=== PATIENT | male | born 1970 | race Hispanic/Latino ===

== ENCOUNTER 2017-12-27 12:59 | Inpatient (IN) | payer OTHER ==
[2017-12-27 13:54] LABS: Basophils # (Auto) 0.1 K/mm3 (0.0-0.1); Basophils % (Auto) 0.9 % (0.0-1.8); Eosinophils # (Auto) 0.5 K/mm3 (0.0-0.4); Eosinophils % (Auto) 6.4 % (0.0-4.3); Hematocrit 35.7 % (35.5-45.6); Lymphocytes # (Auto) 1.8 K/mm3 (1.2-5.4); Lymphocytes % (Auto) 23.4 % (13.4-35.0); Mean Corpuscular HGB Conc 34 % (32-34); Mean Corpuscular Hemoglobin 29 pg (28-32); Mean Corpuscular Volume 86 fl (84-94); Monocytes # (Auto) 0.6 K/mm3 (0.0-0.8); Monocytes % (Auto) 7.7 % (0.0-7.3); Platelet Count 306 K/mm3 (140-440); Red Blood Count 4.17 M/mm3 (3.65-5.03)
--- NOTE | 2017-12-27 14:01 | Cat Scan Report ---
CT HEAD WITHOUT CONTRAST INDICATION: Altered mental status, confused conversation. COMPARISON: None similar at this institution. FINDINGS: Noncontrast head CT demonstrates symmetric ventricles and sulci without acute or recent infarct, hemorrhage, mass effect or midline shift. No abnormal extra-axial fluid collections. Minimal benign basal ganglia calcifications. Posterior fossa structures and basilar cisterns within normal limits. Symmetric eye globes. Approximately 1.3 cm left maxillary sinus mucus retention cyst or thickening partially imaged. Clear remainder imaged paranasal sinuses and mastoid air cells. Mild nasal septal deviation/possible spur. Intact calvarium. Normal overlying scalp soft tissues. Largely edentulous jaw with few anterior mandibular teeth remaining. CONCLUSION: No acute intracranial CT abnormality with few other findings, as described. Thank you for the opportunity to participate in this patient's care.
[2017-12-27 14:08] LABS: Alanine Aminotransferase 31 units/L (7-56); Albumin 3.6 g/dL (3.9-5); BUN/Creatinine Ratio 25; Blood Urea Nitrogen 20 mg/dL (9-20); Calcium 8.9 mg/dL (8.4-10.2); Hemolysis Index 4
--- NOTE | 2017-12-27 14:30 | XRay Report ---
CHEST ONE VIEW INDICATION: Pain. Altered mental status. COMPARISON: None similar. FINDINGS: Portable, single, frontal chest radiograph demonstrates normal cardiomediastinal silhouette. Clear lungs. Unremarkable bones. CONCLUSION: No acute disease in the chest. Thank you for the opportunity to participate in this patient's care.
[2017-12-27 15:09] LABS: INR 0.96 (0.87-1.13)
[2017-12-27 15:19] LABS: Partial Thromboplastin Time 33.2 Sec. (24.2-36.6)
--- NOTE | 2017-12-27 15:41 | Emergency Department Report ---
ED Neuro Deficit HPI - General Chief Complaint: Altered Mental Status Stated Complaint: AMS Time Seen by Provider: 12/27/17 13:52 Source: patient, EMS Mode of arrival: Stretcher Limitations: No Limitations - History of Present Illness Initial Comments: Staff from [facility] where patient is currently being evaluated reports patient had altered mental status today. Reports patient more aggressive than normal. Reports patient has a contusion over right parietal scalp. Patient denies trauma. Facility physician wanted patient evaluated for contusion and AMS in the ER. Patient reports that he started feeling symptoms approximately 2 days ago. -: Gradual, days(s) Location: altered, other (Contusion right parietal scalp) Presenting Symptoms: Present: Altered Mental Status History of same: No Place: other ( facility ) Severity: mild Quality: intermittant Improves With: none Worsens With: none On Anticoagulants: No Associated Symptoms: denies: confusion, chest pain, cough, diaphoresis, fever/ chills, headaches, loss of appetite, malise, nausea/vomiting, vertigo, seizures , shortness of breath, syncope, weakness - Related Data Home Medications: Home Medications Medication Instructions Recorded Confirmed Last Taken PARoxetine [Paxil] 20 mg PO DAILY 12/27/17 12/27/17 Unknown Quetiapine Fumarate [Seroquel] 300 mg PO QHS 12/27/17 12/27/17 Unknown hydrOXYzine PAMOATE [Vistaril] 25 mg PO Q8HR PRN 12/27/17 12/27/17 Unknown Allergies/Adverse Reactions: Allergies Allergy/AdvReac Type Severity Reaction Status Date / Time No Known Allergies Allergy Verified 12/27/17 13:18 ED Review of Systems ROS: Stated complaint: AMS Other details as noted in HPI Other: GENERAL: No weight change, fatigue, weakness, fever, chills, or night sweats SKIN: Contusion right scalp HEAD: No trauma, headache, or visual changes EYES: No blurriness, tearing, itching, acute visual loss, conjunctival discoloration, or scleral icterus EARS: No hearing loss, tinnitus, vertigo, or earache NOSE: No rhinorrhea, stuffiness, sneezing, itching, or epistaxis MOUTH: No bleeding gums, hoarseness, sore throat, or swelling CARDIAC: No new murmur, chest pain, palpitations, dyspnea on exertion, orthopnea , PND, or edema RESPIRATORY: No shortness of breath, wheeze, cough, sputum production, hemoptysis, pneumonia, asthma, bronchitis, or emphysema GI: No change in appetite, nausea, vomiting, dysphagia, change in bowel frequency, diarrhea, constipation, bleeding, hematemesis, melena, hematochezia, or abdominal pain URINARY: No frequency, urgency, polyuria, dysuria, hematuria, or incontinence MUSCULOSKELETAL: No muscle weakness, joint stiffness, decrease in range of motion, redness, swelling NEUROLOGIC: Altered mental status. No loss of sensation, numbness, tingling, tremors, weakness, paralysis, seizures HEMATOLOGIC: No anemia, easy bruising, bleeding, petechiae, or purpura ENDOCRINE: No hot or cold intolerance, sweating, polyuria, polydipsia or, polyphagia no thyroid problems PSYCHIATRIC: No change in mood, no anxiety, no depression ED Past Medical Hx - Past Medical History Hx Psychiatric Treatment: Yes (depression, anxiety, ETOH abuse, cocaine) - Surgical History Past Surgical History?: No - Social History Smoking Status: Current Every Day Smoker Substance Use Type: Alcohol, Cocaine - Medications Home Medications: Home Medications Medication Instructions Recorded Confirmed Last Taken Type PARoxetine [Paxil] 20 mg PO DAILY 12/27/17 12/27/17 Unknown History Quetiapine Fumarate [Seroquel] 300 mg PO QHS 12/27/17 12/27/17 Unknown History hydrOXYzine PAMOATE [Vistaril] 25 mg PO Q8HR PRN 12/27/17 12/27/17 Unknown History ED Neuro Physical Exam - General Limitations: No Limitations Suspected Stroke: Yes - Neurological Exam Neurological exam: Present: alert - NIHSS Assessment Interval: Baseline 1a. Level of Consciousness: alert 1b. LOC Questions: answers correctly 1c. LOC Commands: performs tasks correctly 2. Best Gaze: normal 3. Visual: no visual loss 4. Facial Palsy: normal symmetrical movement 5b. Motor Arm Right: no drift 5a. Motor Arm Left: no drift 6a. Motor Leg Left: no drift 6b. Motor Leg Right: no drift 7. Limb Ataxia: absent 8. Sensory: mild/moderate sensory loss (right side) 9. Best Language: no aphasia 10. Dysarthria: normal 11. Extinction/Inattention: no abnormality Total Score: 1 Stroke Severity: Minor Stroke - Other Other exam information: GENERAL: Patient in no acute distress HEAD: Normocephalic, atraumatic EYES: PERRLA, EOM intact, no scleral icterus, visual wolfe and acuity wnl NOSE: No tenderness, discharge, sinus tenderness MOUTH: No erythema, bleeding, exudate HEART: Regular rate and rhythm, no murmur, S1-S2 are auscultated, pulses are symmetric LUNGS: bilateral breath sounds. No wheezing, rales, rhonchi ABDOMEN: Normal bowel sounds, no tenderness, no rebound, no guarding, no masses , no CVA tenderness MUSCULOSKELETAL: Normal joint range of motion, no redness, no swelling, no tenderness NEUROLOGIC: GCS 15, Alert and Oriented x3, Cranial nerves intact, normal strength, no cerebellar deficit PSYCHIATRIC: No homicidal or suicidal ideation, no anxiety, no depression, no hallucinations SKIN: Mild erythema swelling contusion right parietal occipital scalp approximately 2-3 cm in diameter. ED Course Vital Signs 12/27/17 12/27/17 12/27/17 13:18 15:16 15:28 Temperature 98.2 F Pulse Rate 73 68 66 Respiratory 14 10 L 10 L Rate Blood Pressure 132/83 Blood Pressure 134/85 [Left] O2 Sat by Pulse 100 100 Oximetry 12/27/17 15:29 Temperature Pulse Rate Respiratory 10 L Rate Blood Pressure Blood Pressure [Left] O2 Sat by Pulse 100 Oximetry - Lab Data Result diagrams: 12/27/17 13:36 12/27/17 13:36 Lab Results 12/27/17 12/27/17 12/27/17 Range/Units 13:36 13:36 13:36 WBC 7.9 (4.5-11.0) K/mm3 RBC 4.17 (3.65-5.03) M/mm3 Hgb 12.0 (11.8-15.2) gm/dl Hct 35.7 (35.5-45.6) % MCV 86 (84-94) fl MCH 29 (28-32) pg MCHC 34 (32-34) % RDW 14.0 (13.2-15.2) % Plt Count 306 (140-440) K/mm3 Lymph % (Auto) 23.4 (13.4-35.0) % [place] % (Auto) 7.7 H (0.0-7.3) % Eos % (Auto) 6.4 H (0.0-4.3) % Baso % (Auto) 0.9 (0.0-1.8) % Lymph # 1.8 (1.2-5.4) K/mm3 [place] # 0.6 (0.0-0.8) K/mm3 Eos # 0.5 H (0.0-0.4) K/mm3 Baso # 0.1 (0.0-0.1) K/mm3 Seg Neutrophils % 61.6 (40.0-70.0) % Seg Neutrophils # 4.8 (1.8-7.7) K/mm3 PT (12.2-14.9) Sec. INR (0.87-1.13) APTT (24.2-36.6) Sec. Sodium (137-145) mmol/L Potassium (3.6-5.0) mmol/L Chloride (98-107) mmol/L Carbon Dioxide (22-30) mmol/L Anion Gap mmol/L BUN (9-20) mg/dL Creatinine (0.8-1.5) mg/dL Estimated GFR ml/min BUN/Creatinine Ratio % Glucose (75-100) mg/dL Calcium (8.4-10.2) mg/dL Total Bilirubin (0.1-1.2) mg/dL AST (5-40) units/L ALT (7-56) units/L Alkaline Phosphatase (35-129) units/L Troponin T (0.00-0.029) ng/mL Total Protein (6.3-8.2) g/dL Albumin (3.9-5) g/dL Albumin/Globulin Ratio % TSH (0.270-4.200) mlU/mL Urine Color (Yellow) Urine Turbidity (Clear) Urine pH (5.0-7.0) Ur Specific [place] (1.003-1.030) Urine Protein (Negative) mg/dL Urine Glucose (UA) (Negative) mg/dL Urine Ketones (Negative) mg/dL Urine Blood (Negative) Urine Nitrite (Negative) Urine Bilirubin (Negative) Urine Urobilinogen (<2.0) mg/dL Ur Leukocyte Esterase (Negative) Urine WBC (Auto) (0.0-6.0) /HPF Urine RBC (Auto) (0.0-6.0) /HPF Salicylates < 0.3 L (2.8-20.0) mg/dL Urine Opiates Screen Urine Methadone Screen Acetaminophen < 5.0 L (10.0-30.0) ug/mL Ur Barbiturates Screen Ur Phencyclidine Scrn Ur Amphetamines Screen U Benzodiazepines Scrn Urine Cocaine Screen U Marijuana (THC) Screen Drugs of Abuse Note Plasma/Serum Alcohol (0-0.07) % 12/27/17 12/27/17 12/27/17 Range/Units 13:36 13:36 13:36 WBC (4.5-11.0) K/mm3 RBC (3.65-5.03) M/mm3 Hgb (11.8-15.2) gm/dl Hct (35.5-45.6) % MCV (84-94) fl MCH (28-32) pg MCHC (32-34) % RDW (13.2-15.2) % Plt Count (140-440) K/mm3 Lymph % (Auto) (13.4-35.0) % [place] % (Auto) (0.0-7.3) % Eos % (Auto) (0.0-4.3) % Baso % (Auto) (0.0-1.8) % Lymph # (1.2-5.4) K/mm3 [place] # (0.0-0.8) K/mm3 Eos # (0.0-0.4) K/mm3 Baso # (0.0-0.1) K/mm3 Seg Neutrophils % (40.0-70.0) % Seg Neutrophils # (1.8-7.7) K/mm3 PT (12.2-14.9) Sec. INR (0.87-1.13) APTT (24.2-36.6) Sec. Sodium 139 (137-145) mmol/L Potassium 4.9 (3.6-5.0) mmol/L Chloride 98.7 (98-107) mmol/L Carbon Dioxide 30 (22-30) mmol/L Anion Gap 15 mmol/L BUN 20 (9-20) mg/dL Creatinine 0.8 (0.8-1.5) mg/dL Estimated GFR > 60 ml/min BUN/Creatinine Ratio 25 % Glucose 83 (75-100) mg/dL Calcium 8.9 (8.4-10.2) mg/dL Total Bilirubin 0.40 (0.1-1.2) mg/dL AST 44 H (5-40) units/L ALT 31 (7-56) units/L Alkaline Phosphatase 105 (35-129) units/L Troponin T (0.00-0.029) ng/mL Total Protein 6.2 L (6.3-8.2) g/dL Albumin 3.6 L (3.9-5) g/dL Albumin/Globulin Ratio 1.4 % TSH 0.961 (0.270-4.200) mlU/mL Urine Color (Yellow) Urine Turbidity (Clear) Urine pH (5.0-7.0) Ur Specific [place] (1.003-1.030) Urine Protein (Negative) mg/dL Urine Glucose (UA) (Negative) mg/dL Urine Ketones (Negative) mg/dL Urine Blood (Negative) Urine Nitrite (Negative) Urine Bilirubin (Negative) Urine Urobilinogen (<2.0) mg/dL Ur Leukocyte Esterase (Negative) Urine WBC (Auto) (0.0-6.0) /HPF Urine RBC (Auto) (0.0-6.0) /HPF Salicylates (2.8-20.0) mg/dL Urine Opiates Screen Urine Methadone Screen Acetaminophen (10.0-30.0) ug/mL Ur Barbiturates Screen Ur Phencyclidine Scrn Ur Amphetamines Screen U Benzodiazepines Scrn Urine Cocaine Screen U Marijuana (THC) Screen Drugs of Abuse Note Plasma/Serum Alcohol < 0.01 (0-0.07) % 12/27/17 12/27/17 12/27/17 Range/Units 14:40 14:40 15:18 WBC (4.5-11.0) K/mm3 RBC (3.65-5.03) M/mm3 Hgb (11.8-15.2) gm/dl Hct (35.5-45.6) % MCV (84-94) fl MCH (28-32) pg MCHC (32-34) % RDW (13.2-15.2) % Plt Count (140-440) K/mm3 Lymph % (Auto) (13.4-35.0) % [place] % (Auto) (0.0-7.3) % Eos % (Auto) (0.0-4.3) % Baso % (Auto) (0.0-1.8) % Lymph # (1.2-5.4) K/mm3 [place] # (0.0-0.8) K/mm3 Eos # (0.0-0.4) K/mm3 Baso # (0.0-0.1) K/mm3 Seg Neutrophils % (40.0-70.0) % Seg Neutrophils # (1.8-7.7) K/mm3 PT 13.3 (12.2-14.9) Sec. INR 0.96 (0.87-1.13) APTT 33.2 (24.2-36.6) Sec. Sodium (137-145) mmol/L Potassium (3.6-5.0) mmol/L Chloride (98-107) mmol/L Carbon Dioxide (22-30) mmol/L Anion Gap mmol/L BUN (9-20) mg/dL Creatinine (0.8-1.5) mg/dL Estimated GFR ml/min BUN/Creatinine Ratio % Glucose (75-100) mg/dL Calcium (8.4-10.2) mg/dL Total Bilirubin (0.1-1.2) mg/dL AST (5-40) units/L ALT (7-56) units/L Alkaline Phosphatase (35-129) units/L Troponin T < 0.010 (0.00-0.029) ng/mL Total Protein (6.3-8.2) g/dL Albumin (3.9-5) g/dL Albumin/Globulin Ratio % TSH (0.270-4.200) mlU/mL Urine Color Yellow (Yellow) Urine Turbidity Clear (Clear) Urine pH 6.0 (5.0-7.0) Ur Specific [place] 1.008 (1.003-1.030) Urine Protein <15 mg/dl (Negative) mg/dL Urine Glucose (UA) Neg (Negative) mg/dL Urine Ketones Neg (Negative) mg/dL Urine Blood Neg (Negative) Urine Nitrite Neg (Negative) Urine Bilirubin Neg (Negative) Urine Urobilinogen < 2.0 (<2.0) mg/dL Ur Leukocyte Esterase Neg (Negative) Urine WBC (Auto) 2.0 (0.0-6.0) /HPF Urine RBC (Auto) < 1.0 (0.0-6.0) /HPF Salicylates (2.8-20.0) mg/dL Urine Opiates Screen Urine Methadone Screen Acetaminophen (10.0-30.0) ug/mL Ur Barbiturates Screen Ur Phencyclidine Scrn Ur Amphetamines Screen U Benzodiazepines Scrn Urine Cocaine Screen U Marijuana (THC) Screen Drugs of Abuse Note Plasma/Serum Alcohol (0-0.07) % 12/27/17 Range/Units 15:18 WBC (4.5-11.0) K/mm3 RBC (3.65-5.03) M/mm3 Hgb (11.8-15.2) gm/dl Hct (35.5-45.6) % MCV (84-94) fl MCH (28-32) pg MCHC (32-34) % RDW (13.2-15.2) % Plt Count (140-440) K/mm3 Lymph % (Auto) (13.4-35.0) % [place] % (Auto) (0.0-7.3) % Eos % (Auto) (0.0-4.3) % Baso % (Auto) (0.0-1.8) % Lymph # (1.2-5.4) K/mm3 [place] # (0.0-0.8) K/mm3 Eos # (0.0-0.4) K/mm3 Baso # (0.0-0.1) K/mm3 Seg Neutrophils % (40.0-70.0) % Seg Neutrophils # (1.8-7.7) K/mm3 PT (12.2-14.9) Sec. INR (0.87-1.13) APTT (24.2-36.6) Sec. Sodium (137-145) mmol/L Potassium (3.6-5.0) mmol/L Chloride (98-107) mmol/L Carbon Dioxide (22-30) mmol/L Anion Gap mmol/L BUN (9-20) mg/dL Creatinine (0.8-1.5) mg/dL Estimated GFR ml/min BUN/Creatinine Ratio % Glucose (75-100) mg/dL Calcium (8.4-10.2) mg/dL Total Bilirubin (0.1-1.2) mg/dL AST (5-40) units/L ALT (7-56) units/L Alkaline Phosphatase (35-129) units/L Troponin T (0.00-0.029) ng/mL Total Protein (6.3-8.2) g/dL Albumin (3.9-5) g/dL Albumin/Globulin Ratio % TSH (0.270-4.200) mlU/mL Urine Color (Yellow) Urine Turbidity (Clear) Urine pH (5.0-7.0) Ur Specific [place] (1.003-1.030) Urine Protein (Negative) mg/dL Urine Glucose (UA) (Negative) mg/dL Urine Ketones (Negative) mg/dL Urine Blood (Negative) Urine Nitrite (Negative) Urine Bilirubin (Negative) Urine Urobilinogen (<2.0) mg/dL Ur Leukocyte Esterase (Negative) Urine WBC (Auto) (0.0-6.0) /HPF Urine RBC (Auto) (0.0-6.0) /HPF Salicylates (2.8-20.0) mg/dL Urine Opiates Screen Presumptive negative Urine Methadone Screen Presumptive negative Acetaminophen (10.0-30.0) ug/mL Ur Barbiturates Screen Presumptive negative Ur Phencyclidine Scrn Presumptive negative Ur Amphetamines Screen Presumptive negative U Benzodiazepines Scrn Presumptive negative Urine Cocaine Screen Presumptive negative U Marijuana (THC) Screen Presumptive negative Drugs of Abuse Note Disclamer Plasma/Serum Alcohol (0-0.07) % Interpretation: no acute changes - Radiology Data Radiology results: report reviewed - Medical Decision Making At 1635 Dr. Chand has evaluated. Request perform CTA head/neck Critical care attestation.: If time is entered above; I have spent that time in minutes in the direct care of this critically ill patient, excluding procedure time. ED Disposition Clinical Impression: CVA (cerebral vascular accident) Qualifiers: CVA mechanism: unspecified Qualified Code(s): I63.9 - Cerebral infarction, unspecified Disposition: DC-09 OP ADMIT IP TO THIS HOSP Is pt being admited?: Yes Condition: Stable Time of Disposition: 15:41
[2017-12-27 15:42] LABS: Bilirubin,Urine NEG (Negative); Blood,Urine NEG (Negative); Color,Urine Yellow (Yellow); Protein,Urine <15 mg/dL mg/dL (Negative); RBC,Urine < 1.0 /HPF (0.0-6.0); Urobilinogen,Urine < 2.0 mg/dL (<2.0)
[2017-12-27 15:48] LABS: Amphetamine Screen,Urine PRESUMPTIVE NEGATIVE; Benzodiazepines Screen,Urine PRESUMPTIVE NEGATIVE; Cannabinoid Screen,Urine PRESUMPTIVE NEGATIVE; Cocaine Screen,Urine PRESUMPTIVE NEGATIVE; Methadone Screen,Urine PRESUMPTIVE NEGATIVE; Opiate Screen,Urine PRESUMPTIVE NEGATIVE
--- NOTE | 2017-12-27 18:32 | Cat Scan Report ---
FINAL REPORT EXAM: CT ANGIO HEAD HISTORY: CVA CT angiogram head with intravenous contrast and multiplanar reconstructions. Maximum intensity 3D reconstructions were obtained PRIORS: None. FINDINGS: Normal appearance of the intracranial portion of the carotid arteries. The MCA and LORIN distributions are unremarkable Distal vertebral arteries are intact. The basilar and FINGERPRINT TECHNICIAN circulation is within normal limits No evidence for major vascular occlusion or aneurysm IMPRESSION: Normal CTA head
--- NOTE | 2017-12-27 18:35 | Cat Scan Report ---
FINAL REPORT EXAM: CT ANGIO NECK HISTORY: CVA TECHNIQUE: CT angiogram of the neck with intravenous contrast. Multiplanar and 3D maximum intensity reconstructions obtained PRIORS: None. FINDINGS: Normal appearance at the origin of the great vessels. Common carotid arteries are normal in course and caliber. Internal carotid arteries are in normal in caliber no evidence for stenosis or occlusion. Both vertebral arteries are demonstrated and are patent. No evidence for dissection or stenosis. No acute findings in the neck. IMPRESSION: Normal CTA neck
--- NOTE | 2017-12-27 21:08 | Event Note ---
Date: 12/27/17 See dictated history and physical in the reports
[2017-12-27] MEDS ORDERED: SODIUM CHLORIDE FLUSH SYRINGE 10 ML IV PRN (21:20)
[2017-12-27] MEDS ORDERED: TYLENOL PO PRN (21:20)
[2017-12-27] MEDS ORDERED: MORPHINE IV PRN (21:20)
[2017-12-27] MEDS ORDERED: SODIUM CHLORIDE FLUSH SYRINGE 10 ML INJ PRN (21:22)
[2017-12-27] MEDS ORDERED: NACL 0.9% 1000 ML 1,000 ML IV SCH (22:00)
--- NOTE | 2017-12-27 22:42 | History and Physical Report ---
CHIEF COMPLAINT: 1. Altered mental status. 2. Left-sided numbness. HISTORY OF PRESENT ILLNESS: A 47-year-old male admitted from [place] for suicidal ideations, comes in for altered mental status. At the time of my examination, the patient was alert and oriented. The patient says that he has left-sided numbness from the left upper extremity to the left lower extremity. The patient says that it has been going on for 1 day. No weakness in the upper or lower extremities and no loss of consciousness. No syncope. No exacerbating or precipitating factors. PAST MEDICAL HISTORY: Past medical history is significant for depression, anxiety, ETOH abuse, and cocaine abuse. PAST SURGICAL HISTORY: None. SOCIAL HISTORY: He smokes every day, a pack a day. Alcohol and cocaine dependent. FAMILY HISTORY: Hypertension. CURRENT MEDICATIONS: Paxil 20 mg once a day, Seroquel 200-300 mg once a day, and hydroxyzine 25 mg p.o. q.8 hours p.r.n. REVIEW OF SYSTEMS: Review of systems is significant for initially altered sensorium, but during my examination normally alert and oriented. Left-sided numbness from the left upper extremity and left lower extremity. The patient able to walk. Otherwise, a 14-point review of systems is negative. PHYSICAL EXAMINATION: GENERAL: A middle-aged male, cooperative during examination. VITAL SIGNS: Blood pressure is 134/85, respiratory rate is 10-15, pulse rate is 66. HEENT: Unremarkable. Pupils equal and reactive. NECK: Supple, no lymphadenopathy, no thyromegaly. LUNGS: Are clear to auscultation and percussion. Good air entry. CARDIOVASCULAR: S1, S2 heard. No gallop, no murmur, no rub. Apical impulse in left fifth intercostal space and midclavicular line. ABDOMEN: Soft and benign. No hepatosplenomegaly. No guarding, no rigidity. Hernial orifices are normal. EXTREMITIES: With pedal pulses. No pedal edema. CENTRAL NERVOUS SYSTEM: Alert and oriented x 4, nonfocal examination. LABORATORY AND DIAGNOSTIC DATA: Labs are significant for white count of 7900, H and H is 12.0 and 35.7, platelet count is 306,000. Electrolytes are normal. AST is slightly high at 44, total protein is 6.2, albumin is 3.6. Urine is negative. Drug screen is negative. CT head, no intracranial CT abnormality. Chest x-ray, no acute disease in the chest. Head CTA, normal CT of the head. No evidence of major vascular occlusion. Normal CT angiogram of the neck. ASSESSMENT AND PLAN: 1. Transient ischemic attack. Transient ischemic attack workup. We will get MRI, echo, and carotid duplex scan and also Neurology consult. Cerebrovascular accident unlikely. 2. Depression. Continue Paxil 20 mg once a day. 3. Bipolar disorder. Continue Seroquel 300 mg once a day at bedtime. 4. Hypertension, questionable. At this point, we will initiate antihypertensives if necessary. Blood pressures are in the normal ranges. 5. Suicidal ideation. The patient is on ____. 6. Malnutrition, mild. Dietitian consult requested for oral supplements. 7. Drug dependence. The patient's drug screen is negative. Ativan 1 mg q 3. hours p.r.n. for agitation. Initiate CIWA protocol if necessary. 8. Deep venous thrombosis prophylaxis. Heparin 5000 q.12 hours. In summary, the patient has altered mental status, which has resolved completely, left-sided numbness consistent with transient ischemic attack or cerebrovascular accident, hence transient ischemic attack workup/cerebrovascular accident workup, hypertension by history, but not on any medications, depression and bipolar disorder. JOB# [id number] ARLEEN/CARLA
[2017-12-27] MEDS: PERCOCET 5/325 PO PRN (23:00)
[2017-12-27] MEDS: SODIUM CHLORIDE FLUSH SYRINGE 10 ML IV SCH (23:00)
[2017-12-27] MEDS: HEPARIN SUB-Q SCH (23:00)
[2017-12-27] MEDS: HABITROL TD SCH (23:00)
[2017-12-27] MEDS: PEPCID IV SCH (23:00)
[2017-12-28] MEDS: PERCOCET 5/325 PO PRN (06:41)
[2017-12-28 07:25] LABS: Basophils % (Auto) 0.6 % (0.0-1.8); Eosinophils # (Auto) 0.5 K/mm3 (0.0-0.4); Eosinophils % (Auto) 9.9 % (0.0-4.3); Hematocrit 37.6 % (35.5-45.6); Hemoglobin 12.7 gm/dl (11.8-15.2); Lymphocytes # (Auto) 1.8 K/mm3 (1.2-5.4); Lymphocytes % (Auto) 34.8 % (13.4-35.0); Mean Corpuscular HGB Conc 34 % (32-34); Mean Corpuscular Hemoglobin 29 pg (28-32); Mean Corpuscular Volume 86 fl (84-94); Monocytes # (Auto) 0.5 K/mm3 (0.0-0.8); Platelet Count 303 K/mm3 (140-440); Red Blood Count 4.39 M/mm3 (3.65-5.03); Red Cell Distribution Width 13.9 % (13.2-15.2)
[2017-12-28 07:46] LABS: Alanine Aminotransferase 29 units/L (7-56); Albumin 3.4 g/dL (3.9-5); BUN/Creatinine Ratio 23; Blood Urea Nitrogen 18 mg/dL (9-20); Calcium 8.7 mg/dL (8.4-10.2); Chol/HDL Ratio 4.13 %; HDL Cholesterol 38 mg/dL (40-59); Hemolysis Index 7; LDL Cholesterol,Direct 110 mg/dL (50-130)
[2017-12-28] MEDS: PEPCID IV SCH (09:12)
[2017-12-28] MEDS ORDERED: XANAX PO ONE (10:00)
--- NOTE | 2017-12-28 11:43 | Consultation ---
Medications and Allergies Allergies Allergy/AdvReac Type Severity Reaction Status Date / Time No Known Allergies Allergy Verified 12/27/17 13:18 Home Medications Medication Instructions Recorded Confirmed Last Taken Type PARoxetine [Paxil] 20 mg PO DAILY 12/27/17 12/27/17 Unknown History Quetiapine Fumarate [Seroquel] 300 mg PO QHS 12/27/17 12/27/17 Unknown History hydrOXYzine PAMOATE [Vistaril] 25 mg PO Q8HR PRN 12/27/17 12/27/17 Unknown History Active Meds: Active Medications Acetaminophen (Tylenol) 650 mg PO Q4H PRN PRN Reason: Pain MILD(1-3)/Fever >100.5/HAND Aspirin (Aspirin) 325 mg PO QDAY [facility] Atorvastatin Calcium (Lipitor) 40 mg PO QHS [facility] Last Admin: 12/28/17 00:04 Dose: 40 mg Famotidine (Pepcid) 20 mg IV BID [facility] Last Admin: 12/27/17 23:00 Dose: 20 mg Heparin Sodium (Porcine) (Heparin) 5,000 unit SUB-Q Q12HR [facility] Last Admin: 12/27/17 23:00 Dose: 5,000 unit Sodium Chloride (Nacl 0.9% 1000 Ml) 1,000 mls @ 100 mls/hr IV DIRECT [facility] Morphine Sulfate (Morphine) 2 mg IV Q4H PRN PRN Reason: Pain, Moderate (4-6) Nicotine (Habitrol) 21 mg TD QDAY@2200 [facility] Last Admin: 12/27/17 23:00 Dose: 21 mg Ondansetron HCl (Zofran) 4 mg IV Q8H PRN PRN Reason: Nausea And Vomiting Oxycodone/Acetaminophen (Percocet 5/325) 1 tab PO Q6H PRN PRN Reason: Pain, Moderate (4-6) Last Admin: 12/28/17 06:41 Dose: 1 tab Sodium Chloride (Sodium Chloride Flush Syringe 10 Ml) 10 ml IV BID [facility] Last Admin: 12/27/17 23:00 Dose: 10 ml Sodium Chloride (Sodium Chloride Flush Syringe 10 Ml) 10 ml IV PRN PRN PRN Reason: LINE FLUSH Physical Examination - Vital Signs Vital Signs: Vital Signs Temp Pulse Resp BP Pulse Ox 98.2 F 73 14 132/83 100 12/27/17 13:18 12/27/17 13:18 12/27/17 13:18 12/27/17 13:18 12/27/17 13:18 - Assessment Assessment Interval: Baseline - Level of Consciousness 1a. Level of Consciousness: alert - LOC Questions 1b. LOC Questions: answers correctly - LOC Command 1c. LOC Commands: performs tasks correctly - Best Gaze 2. Best Gaze: normal - Visual 3. Visual: no visual loss - Facial Palsy 4. Facial Palsy: normal symmetrical movement - Motor Arm 5b. Motor Arm Right: no drift - Motor Leg 6a. Motor Leg Left: no drift - Limb Ataxia 7. Limb Ataxia: absent - Sensory 8. Sensory: mild/moderate sensory loss (right side) - Best Language 9. Best Language: no aphasia - Dysarthria 10. Dysarthria: normal - Extinction and Inattention 11. Extinction/Inattention: no abnormality Results - Laboratory Findings CBC and BMP: 12/28/17 07:05 12/28/17 07:05 Abnormal Lab Findings: Abnormal Labs 12/27/17 12/27/17 12/27/17 13:36 13:36 13:36 [place] % (Auto) 7.7 H Eos % (Auto) 6.4 H Eos # 0.5 H Carbon Dioxide POC Glucose AST Total Protein Albumin HDL Cholesterol Salicylates < 0.3 L Acetaminophen < 5.0 L 12/27/17 12/27/17 12/28/17 13:36 22:47 07:05 [place] % (Auto) 10.0 H Eos % (Auto) 9.9 H Eos # 0.5 H Carbon Dioxide POC Glucose 115 H AST 44 H Total Protein 6.2 L Albumin 3.6 L HDL Cholesterol Salicylates Acetaminophen 12/28/17 07:05 [place] % (Auto) Eos % (Auto) Eos # Carbon Dioxide 32 H POC Glucose AST Total Protein 5.9 L Albumin 3.4 L HDL Cholesterol 38 L Salicylates Acetaminophen Assessment and Plan Impression: 1. Confusion 2. Paresthesias Plan: 1. EEG pending. If ok and MRI ok, can be discharged from my standpoint. 2. MRI pending. If ok and EEG ok, can be discharged from my standpoint.
[2017-12-28] MEDS: ASPIRIN PO SCH (11:48)
[2017-12-28] MEDS: HEPARIN SUB-Q SCH ×2 (11:49→22:11)
--- NOTE | 2017-12-28 11:49 | Consultation ---
History of Present Illness Consult date: 12/28/17 Requesting physician: TO ARTHUR Reason for Consult: AMS, numbness Chief complaint: numbness right side episode History of present illness: This 47-year-old right handed white male was admitted yesterday for altered mental status from a detox facility. He states he noted a "knot" on his head 2 days ago but doesn't recall any injury. He has been at the detox facility for the past 15 days. He also noted numbness of his right arm and leg and tingling of the right side of his face if he rubs it and some right facial soreness when touched and some lightheadedness and a phenomenon in which images trail when he looks sideways (sometimes seen in migraine or in MS). Since soon after admission his mental status is been normal. He states he has some old numbness in the left arm and leg since he developed shingles in 2011 in the left leg which he says was not treated. This developed while in [facility] he says. 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 denies: alcohol abuse (none in 3 years), prescription drug abuse, IV drug use (was smoking crack cocaine for 15 months until the detox. ) Family history: hypertension (both parents), stroke (father), other (paternal aunt had he thinks childhood epilepsy). denies: diabetes Medications and Allergies Allergies Allergy/AdvReac Type Severity Reaction Status Date / Time No Known Allergies Allergy Verified 12/27/17 13:18 Home Medications Medication Instructions Recorded Confirmed Last Taken Type PARoxetine [Paxil] 20 mg PO DAILY 12/27/17 12/27/17 Unknown History Quetiapine Fumarate [Seroquel] 300 mg PO QHS 12/27/17 12/27/17 Unknown History hydrOXYzine PAMOATE [Vistaril] 25 mg PO Q8HR PRN 12/27/17 12/27/17 Unknown History Active Meds: Active Medications Acetaminophen (Tylenol) 650 mg PO Q4H PRN PRN Reason: Pain MILD(1-3)/Fever >100.5/HAND Aspirin (Aspirin) 325 mg PO QDAY [facility] Atorvastatin Calcium (Lipitor) 40 mg PO QHS [facility] Last Admin: 12/28/17 00:04 Dose: 40 mg Famotidine (Pepcid) 20 mg IV BID [facility] Last Admin: 12/27/17 23:00 Dose: 20 mg Heparin Sodium (Porcine) (Heparin) 5,000 unit SUB-Q Q12HR [facility] Last Admin: 12/27/17 23:00 Dose: 5,000 unit Sodium Chloride (Nacl 0.9% 1000 Ml) 1,000 mls @ 100 mls/hr IV DIRECT [facility] Morphine Sulfate (Morphine) 2 mg IV Q4H PRN PRN Reason: Pain, Moderate (4-6) Nicotine (Habitrol) 21 mg TD QDAY@2200 [facility] Last Admin: 12/27/17 23:00 Dose: 21 mg Ondansetron HCl (Zofran) 4 mg IV Q8H PRN PRN Reason: Nausea And Vomiting Oxycodone/Acetaminophen (Percocet 5/325) 1 tab PO Q6H PRN PRN Reason: Pain, Moderate (4-6) Last Admin: 12/28/17 06:41 Dose: 1 tab Sodium Chloride (Sodium Chloride Flush Syringe 10 Ml) 10 ml IV BID [facility] Last Admin: 12/27/17 23:00 Dose: 10 ml Sodium Chloride (Sodium Chloride Flush Syringe 10 Ml) 10 ml IV PRN PRN PRN Reason: LINE FLUSH Review of Systems All systems: negative (no headaches, occasional dizziness, some snoring but no pauses have been mentioned, is not napping or dozing off and not sleepy driving. Some short-term and remote memory problems since use of crack.) Physical Examination - Vital Signs Vital Signs: Vital Signs Temp Pulse Resp BP Pulse Ox 98.2 F 73 14 132/83 100 12/27/17 13:18 12/27/17 13:18 12/27/17 13:18 12/27/17 13:18 12/27/17 13:18 - Physical Exam Narrative exam: General Appearance: well developed well nourished (per BMI) mid 40s white male in [facility]. HEENT: normocephalic; no bruits, 2+ Tyler without soreness or induration or enlargement, sclerae nonicteric. Oropharynx pink and moist. Neck: supple, no bruits. Heart: no murmur or extra sounds. Extremities: no clubbing, cyanosis or edema. 2+ dorsalis pedis pulses bilaterally. Neurologic Exam: Mental Status: Awake, alert, oriented X 3, speech is clear, names pen and but not tip of pen, calls the clip the madera, names comb but calls the teeth the bristles and abstracts well. Names President but gives only first portion of this sound of the Marble Supervisor's name and spells it PECNA, serial 7's are poor but gives 5+7 = 12, no right-left confusion, gets 1 of 3 objects at 3 minutes, spells WORLD backwards correctly. Cranial Nerves: wolfe full, no papilledema, SVPs present, right pupil 2.5 mm and left 2 mm with slightly sluggish response to light on the left and poor response on the right and poor for accommodation bilaterally, EOMs full without nystagmus or diplopia, facial sensation shows decreased light touch right V2-3 with tingling elicited in right V1 but intact pinprick, no facial weakness, Rivas is midline, palate rises symmetrically to phonation, shoulder shrug is 5 X 2, tongue protrudes midline. Cerebellar: finger to nose slightly dysmetric at endpoints bilaterally, tremor of outstretched fingers, [id number] is normal bilaterally. Sensory: slightly decreased to light touch in the left leg with some tingling, pinprick decreased left leg, intact vibrations. Double simultaneous stimulation is intact. Motor Exam Upper Extremities: no drift or pronation, Carla intact. Practice Management Consultant are 5 X 2, tone is normal. No atrophy or fasciculations are noted visually. Motor Exam Lower Extremities: no leg lag, quadriceps 4+ on the left, anterior tibials and gastrocnemius are 5 X 2. Carla intact. Tone is normal. No atrophy or fasciculations are noted visually. Reflexes: Palmomental, snout and jaw jerk are negative. Triceps, biceps and brachioradialis are trace bilaterally. Dahlia's is negative bilaterally. Knee jerks are trace becoming 2 with reinforcement and ankle jerks are 1 bilaterally without clonus. Toes are downgoing right and upgoing left to Babinski testing. - Assessment Assessment Interval: Baseline - Level of Consciousness 1a. Level of Consciousness: alert - LOC Questions 1b. LOC Questions: answers correctly - LOC Command 1c. LOC Commands: performs tasks correctly - Best Gaze 2. Best Gaze: normal - Visual 3. Visual: no visual loss - Facial Palsy 4. Facial Palsy: normal symmetrical movement - Motor Arm 5b. Motor Arm Right: no drift - Motor Leg 6a. Motor Leg Left: no drift - Limb Ataxia 7. Limb Ataxia: absent - Sensory 8. Sensory: mild/moderate sensory loss (right side) - Best Language 9. Best Language: no aphasia - Dysarthria 10. Dysarthria: normal - Extinction and Inattention 11. Extinction/Inattention: no abnormality Results - Laboratory Findings CBC and BMP: 12/28/17 07:05 12/28/17 07:05 Abnormal Lab Findings: Abnormal Labs 12/27/17 12/27/17 12/27/17 13:36 13:36 13:36 [place] % (Auto) 7.7 H Eos % (Auto) 6.4 H Eos # 0.5 H Carbon Dioxide POC Glucose AST Total Protein Albumin HDL Cholesterol Salicylates < 0.3 L Acetaminophen < 5.0 L 12/27/17 12/27/17 12/28/17 13:36 22:47 07:05 [place] % (Auto) 10.0 H Eos % (Auto) 9.9 H Eos # 0.5 H Carbon Dioxide POC Glucose 115 H AST 44 H Total Protein 6.2 L Albumin 3.6 L HDL Cholesterol Salicylates Acetaminophen 12/28/17 07:05 [place]he % (Auto) Eos % (Auto) Eos # Carbon Dioxide 32 H POC Glucose AST Total Protein 5.9 L Albumin 3.4 L HDL Cholesterol 38 L Salicylates Acetaminophen Assessment and Plan Impression: 1. Confusion 2. Paresthesias Plan: 1. EEG pending. 2. MRI pending. His LDL is 110. He is now on 40 mg atorvastatin and 325 mg aspirin. If his MRI shows new or old possibly embolic infarcts, he should have a 30 day event monitor as an outpatient to look for PAF. 3. Echocardiogram showed mild left atrial enlargement but no bubble study done. No need to add bubbles unless his MRI shows new or prior strokes. 3. If EEG and MRI are normal, can be discharged. He says he is due to go now to a retirement house. 4. He should not drive until no episodes of confusion for 6 months. If he has recurrence of such episodes, he may need a trial of an antiepileptic drug (AED). 50 minutes spent including later review of 100s of MRI images. Thank you for an interesting consultation on this pleasant mid 40s man. Signing off, I will provide an EEG preliminary reading later. If it shows epileptiform activity, I will start him on an AED.
[2017-12-28] MEDS: PEPCID PO SCH ×2 (13:17→22:11)
--- NOTE | 2017-12-28 14:37 | Electroencephalogram Report ---
Electroencephalogram EEG Description: EEG preliminary findings: 9 Hz alpha posteriorly and some anterior beta activity. One possible K complex indicating brief stage II sleep. No epileptiform activity. Interpretation: EEG preliminary reading: normal waking and brief sleep EEG.
[2017-12-28] MEDS: SODIUM CHLORIDE FLUSH SYRINGE 10 ML IV SCH ×2 (15:11→22:11)
[2017-12-28] MEDS ORDERED: HALDOL IM PRN (17:17)
--- NOTE | 2017-12-28 18:26 | Progress Note ---
Assessment and Plan /TIA vs acute CVA - cont stroke protocol, wait for MRI brain - cont aspirin, statin, consulted neuro /Depression with bipolar disorder - cont home meds, will consult mental health /SI, denies now - will follow with psych /h/o drug abuse/dependence - supportive care, UDs negative DVt Px, lovenox brieF history: This 47-year-old right handed white male was admitted yesterday for altered mental status and left sided numbness from a detox facility. Subjective Date of service: 12/28/17 Interval history: Pt seen and examined appears agitated with RN wondering aroung the unit and brenden got into other pt's room counselled at bedside Objective - Constitutional Vitals: Vital Signs - 12hr 12/28/17 10:00 O2 Sat by Pulse 98 Oximetry General appearance: Present: no acute distress, well-nourished - EENT Eyes: PERRL, EOM intact ENT: hearing intact, clear oral mucosa Ears: bilateral: normal - Neck Neck: supple, normal ROM - Respiratory Respiratory effort: normal Respiratory: bilateral: CTA - Cardiovascular Rhythm: regular Heart Sounds: Present: S1 & S2. Absent: gallop, rub Extremities: pulses intact, No edema, normal color, Full ROM - Gastrointestinal General gastrointestinal: Present: soft, non-tender, non-distended, normal bowel sounds - Integumentary Integumentary: clear, warm, dry - Musculoskeletal Musculoskeletal: 1, strength equal bilaterally - Neurologic Neurologic: moves all extremities - Psychiatric Psychiatric: no intact judgment & insight, agitated - Labs CBC & Chem 7: 12/28/17 07:05 12/28/17 07:05 Labs: Abnormal lab results 12/27/17 12/28/17 12/28/17 Range/Units 22:47 07:05 07:05 [place] % (Auto) 10.0 H (0.0-7.3) % Eos % (Auto) 9.9 H (0.0-4.3) % Eos # 0.5 H (0.0-0.4) K/mm3 Carbon Dioxide 32 H (22-30) mmol/L POC Glucose 115 H (70-105) Total Protein 5.9 L (6.3-8.2) g/dL Albumin 3.4 L (3.9-5) g/dL HDL Cholesterol 38 L (40-59) mg/dL
[2017-12-28] MEDS: PAXIL PO SCH (20:05)
[2017-12-28] MEDS ORDERED: NON-FORMULARY (Quetiapine Fumarate [Seroquel] 300 MG) PO SCH (22:00)
[2017-12-28] MEDS: HABITROL TD SCH (22:10)
[2017-12-28] MEDS: ZOFRAN IV PRN (23:46)
[2017-12-29] MEDS: PAXIL PO SCH (10:05)
[2017-12-29] MEDS: PEPCID PO SCH ×2 (10:05→22:26)
[2017-12-29] MEDS: SODIUM CHLORIDE FLUSH SYRINGE 10 ML IV SCH ×2 (10:05→22:26)
[2017-12-29] MEDS: ASPIRIN PO SCH (10:05)
[2017-12-29] MEDS: HEPARIN SUB-Q SCH ×2 (10:06→22:26)
[2017-12-29] MEDS: PERCOCET 5/325 PO PRN (10:51)
[2017-12-29] MEDS ORDERED: XANAX PO ONE (12:00)
--- NOTE | 2017-12-29 15:22 | Progress Note ---
Assessment and Plan /TIA vs acute CVA - cont stroke protocol, wait for MRI brain report - cont aspirin, statin, consulted neuro /Depression with bipolar disorder - cont home meds, will consult mental health /SI, denies now - will follow with psych /h/o drug abuse/dependence - supportive care, UDs negative DVt Px, lovenox brieF history: This 47-year-old right handed white male was admitted yesterday for altered mental status and left sided numbness from a detox facility. Subjective Date of service: 12/29/17 Interval history: Pt seen and examined appears restless Psych eval pending Objective - Exam Narrative Exam: General appearance: Present: no acute distress, well-nourished - EENT Eyes: PERRL, EOM intact ENT: hearing intact, clear oral mucosa Ears: bilateral: normal - Neck Neck: supple, normal ROM - Respiratory Respiratory effort: normal Respiratory: bilateral: CTA - Cardiovascular Rhythm: regular Heart Sounds: Present: S1 & S2. Absent: gallop, rub Extremities: pulses intact, No edema, normal color, Full ROM - Gastrointestinal General gastrointestinal: Present: soft, non-tender, non-distended, normal bowel sounds - Integumentary Integumentary: clear, warm, dry - Musculoskeletal Musculoskeletal: 1, strength equal bilaterally - Neurologic Neurologic: moves all extremities - Psychiatric Psychiatric: no intact judgment & insight, agitated - Constitutional Vitals: Vital Signs - 12hr 12/29/17 12/29/17 05:07 07:49 Temperature 97.6 F 97.8 F Pulse Rate 56 L 66 Respiratory 20 16 Rate Blood Pressure 111/73 145/79 O2 Sat by Pulse 96 95 Oximetry - Labs CBC & Chem 7: 12/28/17 07:05 12/28/17 07:05
--- NOTE | 2017-12-29 16:13 | Magnetic Resonance Report ---
MRI BRAIN WITHOUT CONTRAST: 12/29/17 CLINICAL: Stroke. TECHNIQUE: Axial diffusion, T1, T2, gradient echo T2*, coronal and axial FLAIR and sagittal T1 sequences on a 1.5 Ashley magnet. FINDINGS: The ventricles and sulci are normal for age. No restricted diffusion. Moderate bilateral multifocal subcortical and deep white matter hyperintensities on FLAIR and T2. These are predominantly in the bilateral frontal, bilateral parietal and left temporal lobes. Hypointensities in the basal ganglia on the gradient echo sequence are consistent with benign calcifications. No chronic micro-bleeds. No mass or mass effect. No hemorrhage, edema or extra-axial collection. Normal pituitary and optic chiasm. The brainstem and cerebellum are normal. Intact vascular flow voids. Mild bilateral maxillary sinusitis with mucoperiosteal thickening. No air-fluid levels in the sinuses. The orbits, and soft tissues are normal. Normal calvarium and skull base. IMPRESSION: 1. No evidence of acute/subacute infarct or hemorrhage. 2. Moderate bilateral multifocal white matter hyperintensities which are most likely secondary to chronic white matter microangiopathy.
--- NOTE | 2017-12-29 16:15 | Magnetic Resonance Report ---
MRA HEAD WITHOUT CONTRAST: 12/29/17 CLINICAL: Stroke. TECHNIQUE: Axial 3-D [id number] MR angiography of the belkofski of Hdz with review of axial source images. FINDINGS: Intact belk[place]ski of [place] with no aneurysm, stenosis or occlusion. Symmetric blood flow in the anterior, middle and posterior cerebral arteries. Normal basilar and vertebral arteries. IMPRESSION: Normal study.
[2017-12-29] MEDS: HABITROL TD SCH (22:23)
[2017-12-30] MEDS: PERCOCET 5/325 PO PRN ×3 (08:49→21:30)
[2017-12-30] MEDS: ZOFRAN IV PRN (08:50)
[2017-12-30] MEDS: PEPCID PO SCH ×2 (09:00→21:29)
[2017-12-30] MEDS: ASPIRIN PO SCH (09:00)
[2017-12-30] MEDS: PAXIL PO SCH (09:00)
[2017-12-30] MEDS: SODIUM CHLORIDE FLUSH SYRINGE 10 ML IV SCH ×2 (09:02→22:56)
[2017-12-30] MEDS: HEPARIN SUB-Q SCH ×2 (12:23→21:32)
--- NOTE | 2017-12-30 14:41 | Progress Note ---
Assessment and Plan /TIA, likely - admitted with stroke protocol, MRI brain showed chronic changes only - cont aspirin, statin, consulted neuro /Depression with bipolar disorder - cont home meds, consulted mental health /SI, denies now - will follow with psych /h/o drug abuse/dependence - supportive care, UDs negative DVt Px, lovenox brieF history: This 47-year-old right handed white male was admitted for altered mental status and left sided numbness from a detox facility. Subjective Date of service: 12/30/17 Interval history: Pt seen and examined appears restless, c/o itching Psych eval pending Objective - Exam Narrative Exam: General appearance: Present: no acute distress, well-nourished - EENT Eyes: PERRL, EOM intact ENT: hearing intact, clear oral mucosa Ears: bilateral: normal - Neck Neck: supple, normal ROM - Respiratory Respiratory effort: normal Respiratory: bilateral: CTA - Cardiovascular Rhythm: regular Heart Sounds: Present: S1 & S2. Absent: gallop, rub Extremities: pulses intact, No edema, normal color, Full ROM - Gastrointestinal General gastrointestinal: Present: soft, non-tender, non-distended, normal bowel sounds - Integumentary Integumentary: clear, warm, dry - Musculoskeletal Musculoskeletal: 1, strength equal bilaterally - Neurologic Neurologic: moves all extremities - Psychiatric Psychiatric: cooperative - Constitutional Vitals: Vital Signs - 12hr 12/30/17 12/30/17 05:11 10:00 Temperature 98.0 F Pulse Rate 70 Respiratory 20 16 Rate Blood Pressure 105/72 O2 Sat by Pulse 89 96 Oximetry - Labs CBC & Chem 7: 12/28/17 07:05 12/28/17 07:05
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
[2017-12-30] MEDS: HABITROL TD SCH (21:29)
[2017-12-30] MEDS: VISTARIL PO PRN (22:56)
[2017-12-31] MEDS: PERCOCET 5/325 PO PRN (06:18)
[2017-12-31] MEDS: ATARAX PO PRN (06:20)
[2017-12-31] MEDS: ASPIRIN PO SCH (10:38)
[2017-12-31] MEDS: PAXIL PO SCH (10:38)
[2017-12-31] MEDS: PEPCID PO SCH ×2 (10:38→21:16)
[2017-12-31] MEDS: HEPARIN SUB-Q SCH ×2 (10:38→21:18)
[2017-12-31] MEDS: SODIUM CHLORIDE FLUSH SYRINGE 10 ML IV SCH ×2 (10:39→21:18)
[2017-12-31] MEDS: NORCO 5/325 PO PRN ×2 (15:38→21:16)
--- NOTE | 2017-12-31 17:58 | Progress Note ---
Subjective - Reason for Consult Consult date: 12/31/17 Reason for consult: follow up - Chief Complaint Chief complaint: "I'm dealing with depression." 47 year old WM seen for psychiatric follow up on the telemetry floor. He reports a diagnosis of bipolar disorder, cocaine use disorder, and opioid use disorder, in remission. He reports having suicidal ideation with a plan to hang himself. He reports vague homicidal ideation, no one in particular. He reports auditory hallucinations to harm himself. He states the voices were loud and distressing last night. He states he got up at 2am and took a shower to distract himself from the voices. He asked that his seroquel be increased. Mental Status Exam - Vital signs Last Vital Signs Temp 98.2 F 12/31/17 05:40 Pulse 63 12/31/17 10:00 Resp 20 12/31/17 05:40 BP 131/79 12/31/17 05:40 Pulse Ox 98 12/31/17 05:40 - Exam Narrative exam: Orientation: time, place, person Affect: depressed, anxious Mood: congruent with affect Thought content: other (SI with plan. HI without a plan) Thought Process: Intact Perceptions: auditory, command, hallucinations Speech: normal rate and pattern Concentration: focused Motor activity: normal Level of consciousness: alert Memory: Intact Sleep Symptoms: Difficulty Falling Asleep (without meds) Appetite: decreased Interaction: cooperative Assessment and Plan Impression: suicidal ideation with a plan to hang himself vague homicidal ideation bipolar disorder by history cocaine use disorder opioid use disorder, in remission r/o PTSD He asked to be on a higher dose of seroquel. He states he is usually on 500mg hs. QTc today is 424. Recommendations: Continue 1013. The transfer process was explained. He was informed he must be medically cleared before assessment services can begin working on placement. He is currently ordered his home medications of seroquel 300mg hs, paxil 20mg daily, and vistaril 25mg prn anxiety. Increase seroquel to 400mg hs for mood/ psychotic symptoms. Psych will follow
--- NOTE | 2017-12-31 18:11 | Progress Note ---
Assessment and Plan /TIA, likely - admitted with stroke protocol, MRI brain showed chronic changes only - cont aspirin, statin, consulted neuro - no abnormality on EEG /Depression with bipolar disorder - cont home meds, consulted mental health /SI, denies now - psych following - on 1013 /h/o drug abuse/dependence - supportive care, UDs negative DVt Px, lovenox Disposition: patient medically clear brieF history: This 47-year-old right handed white male was admitted for altered mental status and left sided numbness from a detox facility. Subjective Date of service: 12/31/17 Interval history: Pt seen and examined appears more sleepy today Objective - Exam Narrative Exam: General appearance: Present: no acute distress, well-nourished - EENT Eyes: PERRL, EOM intact ENT: hearing intact, clear oral mucosa Ears: bilateral: normal - Neck Neck: supple, normal ROM - Respiratory Respiratory effort: normal Respiratory: bilateral: CTA - Cardiovascular Rhythm: regular Heart Sounds: Present: S1 & S2. Absent: gallop, rub Extremities: pulses intact, No edema, normal color, Full ROM - Gastrointestinal General gastrointestinal: Present: soft, non-tender, non-distended, normal bowel sounds - Integumentary Integumentary: clear, warm, dry - Musculoskeletal Musculoskeletal: 1, strength equal bilaterally - Neurologic Neurologic: moves all extremities - Psychiatric Psychiatric: cooperative - Constitutional Vitals: Vital Signs - 12hr 12/31/17 10:00 Pulse Rate 63 - Labs CBC & Chem 7: 12/28/17 07:05 12/28/17 07:05
[2017-12-31] MEDS: HABITROL TD SCH (21:15)
[2018-01-01] MEDS: PERCOCET 5/325 PO PRN ×2 (10:08→18:30)
[2018-01-01] MEDS: ASPIRIN PO SCH (10:09)
[2018-01-01] MEDS: PAXIL PO SCH (10:10)
[2018-01-01] MEDS: HEPARIN SUB-Q SCH ×2 (10:10→21:37)
[2018-01-01] MEDS: SODIUM CHLORIDE FLUSH SYRINGE 10 ML IV SCH ×2 (10:11→21:37)
[2018-01-01] MEDS: PEPCID PO SCH ×2 (10:11→21:37)
--- NOTE | 2018-01-01 11:10 | Progress Note ---
Subjective - Reason for Consult Consult date: 01/01/18 Reason for consult: Psychiatry Follow-up - Chief Complaint Chief complaint: "I want to get better" 47 year old WM seen for psychiatric follow up on the telemetry floor. He reports a diagnosis of bipolar disorder, cocaine use disorder, and opioid use disorder, in remission. Today the patient is calm, but withdrawn during the assessment. He stated that he does still want to , because his life is all "messed up." He rate his depression 7/10, with 10 being the worse. He would not confirm a suicide plan when asked. He denies HI's and AVH's. He denies any side effects of his medications. Mental Status Exam - Vital signs Last Vital Signs Temp 97.8 F 01/01/18 05:34 Pulse 61 01/01/18 05:34 Resp 18 01/01/18 05:34 BP 116/73 01/01/18 05:34 Pulse Ox 96 01/01/18 05:34 - Exam Narrative exam: MSE: Appearance: calm, cooperative Behavior: regular eye contact Speech: regular rate and tone Mood: "depressed" withdrawn Affect: flat Thought Process: circumstantial Thought Content: denies HI's and AVH's Motor Activity: sitting up in bed Cognition: A/O x 3 Insight: variable Judgment: variable Assessment and Plan Impression: Unspecified Mood DO. R/O PTSD. Hx of Substance Use DO and Opioid Use DO. Today the patient is calm, but withdrawn during the assessment. The patient endorses SI's. DDx: MDD, R/O Bipolar DO Recommendations/Plan: Continue 1013 with placement to inpatient psy services. Continue Seroquel 400 mg PO HS for mood/psychosis, Paxil 20 mg PO daily for depression and Vistaril 25 mg PO Q8hrs prn for acute anxiety. Discussed possible metabolic side effects of Seroquel with patient. Discussed possible suicidality/medication induced akin with patient reference Paxil. Discussed generalized coping skills with patient.
[2018-01-01] MEDS: NORCO 5/325 PO PRN (12:10)
[2018-01-01] MEDS: VISTARIL PO PRN ×2 (12:10→18:45)
--- NOTE | 2018-01-01 15:09 | Discharge Summary ---
Providers - Providers Date of Admission: 12/27/17 15:41 Date of discharge: 01/01/18 Attending physician: PAM SONG 12/27/17 21:20 Consult to Physician [CONS] Routine Comment: Consulting Provider: ANA MORALES Physician Instructions: Reason For Exam: TIA 12/27/17 21:23 Occupational Therapy Evaluate and Treat [CONS] Routine Comment: Reason For Exam: Neuro deficits Physical Therapy Evaluation and Treat [CONS] Routine Comment: Reason For Exam: Neuro deficits 12/27/17 21:24 Consult to Mental Health [CONS] Routine Reason For Exam: suicidal Place consult to:: Mental Health Notified:: Jon ROBERTSONmemory care director physician: SERVICE CAPTAIN Hospitalization Condition: Stable Hospital course: brieF history: This 47-year-old right handed white male was admitted for altered mental status and left sided numbness from a detox facility. Dischage Diagnosis: /TIA, likely - admitted with stroke protocol, MRI brain showed chronic changes only - cont aspirin, statin, consulted neuro - no abnormality on EEG /Depression with bipolar disorder - cont home meds, consulted mental health /SI, denies now - psych following - on 1013 /h/o drug abuse/dependence - supportive care, UDs negative DVt Px, lovenox Disposition: patient medically clear physical exam - Exam Narrative Exam: General appearance: Present: no acute distress, well-nourished - EENT Eyes: PERRL, EOM intact ENT: hearing intact, clear oral mucosa Ears: bilateral: normal - Neck Neck: supple, normal ROM - Respiratory Respiratory effort: normal Respiratory: bilateral: CTA - Cardiovascular Rhythm: regular Heart Sounds: Present: S1 & S2. Absent: gallop, rub Extremities: pulses intact, No edema, normal color, Full ROM - Gastrointestinal General gastrointestinal: Present: soft, non-tender, non-distended, normal bowel sounds - Integumentary Integumentary: clear, warm, dry - Musculoskeletal Musculoskeletal: 1, strength equal bilaterally - Neurologic Neurologic: moves all extremities - Psychiatric Psychiatric: cooperative Disposition: DC/TX-65 PSY HOSP/PSY UNIT Time spent for discharge: 34 minutes Core Measure Documentation - Palliative Care Palliative Care/ Comfort Measures: Not Applicable - Core Measures Any of the following diagnoses?: stroke - Stroke Discharge Requirements Statin for LDL = or >70 mg/dl on DC: Yes Anticoag for atrial fib/atrial flutter: Not Applicable Antithrombotic for ischemic stroke: Yes Exam - Constitutional Vitals: Temp Pulse Resp BP Pulse Ox 97.8 F 61 18 116/73 96 01/01/18 05:34 01/01/18 12:31 01/01/18 05:34 01/01/18 05:34 01/01/18 05:34 Plan Activity: advance as tolerated Weight Bearing Status: Non-Weight Bearing Diet: low fat, low salt Follow up with: PRIMARY CARE, [Primary Care Provider] - 3-5 Days Prescriptions: AtorvaSTATin [Lipitor] 40 mg PO QHS #30 tablet Aspirin EC [Aspirin Enteric Coated TAB] 81 mg PO QDAY #30 tablet.
[2018-01-01] MEDS: HABITROL TD SCH (21:36)
[2018-01-01] MEDS: ATARAX PO PRN (21:37)
--- NOTE | 2018-01-02 02:52 | Progress Note ---
Assessment and Plan /TIA, likely - admitted with stroke protocol, MRI brain showed chronic changes only - cont aspirin, statin, consulted neuro - no abnormality on EEG /Depression with bipolar disorder - cont home meds, consulted mental health /SI, denies now - psych following - on 1013 /h/o drug abuse/dependence - supportive care, UDs negative DVt Px, lovenox Disposition: patient medically clear, need inpt psych placement brieF history: This 47-year-old right handed white male was admitted for altered mental status and left sided numbness from a detox facility. Subjective Date of service: 01/01/18 Interval history: Pt seen and examined No acute event O/N Objective - Exam Narrative Exam: General appearance: Present: no acute distress, well-nourished - EENT Eyes: PERRL, EOM intact ENT: hearing intact, clear oral mucosa Ears: bilateral: normal - Neck Neck: supple, normal ROM - Respiratory Respiratory effort: normal Respiratory: bilateral: CTA - Cardiovascular Rhythm: regular Heart Sounds: Present: S1 & S2. Absent: gallop, rub Extremities: pulses intact, No edema, normal color, Full ROM - Gastrointestinal General gastrointestinal: Present: soft, non-tender, non-distended, normal bowel sounds - Integumentary Integumentary: clear, warm, dry - Musculoskeletal Musculoskeletal: 1, strength equal bilaterally - Neurologic Neurologic: moves all extremities - Psychiatric Psychiatric: cooperative - Constitutional Vitals: Vital Signs - 12hr 01/01/18 01/01/18 20:26 23:55 Temperature 98.5 F 98.6 F Pulse Rate 67 60 Respiratory 20 20 Rate Blood Pressure 114/72 113/77 O2 Sat by Pulse 95 97 Oximetry - Labs CBC & Chem 7: 12/28/17 07:05 12/28/17 07:05
--- NOTE | 2018-01-02 08:29 | Vascular Lab Report ---
CAROTID DUPLEX STUDY: RIGHT PSVEDV CCA [id number] CCA DIST:[id number] ICA PROX:9021 ICA MID:8334 ICA DIST:8432 ECA: [id number] VERT: 54 14 LEFT PSVEDV CCA PROX:[id number] CCA DIST:9224 ICA PROX:80001 ICA MID:8733 ICA DIST:8638 ECA: [id number] VERT: 57 20 REASON FOR EXAM: Stroke. COMMENTS ON THE RIGHT: Doppler frequency analysis is consistent with 16 to 49 percent diameter reduction of the internal carotid artery. A small amount of plaque is seen. The common carotid artery is patent. The external carotid artery is patent. The vertebral artery has antegrade flow. COMMENTS ON THE LEFT: Doppler frequency analysis is consistent with 16 to 49 percent diameter reduction of the internal carotid artery. A small amount of plaque is seen. The common carotid artery is patent. The external carotid artery is patent. The vertebral artery has antegrade flow. IMPRESSION: Less than 50% diameter reduction in the internal carotid arteries bilaterally. Recommend repeat carotid artery duplex in 12 months.
[2018-01-02] MEDS: NORCO 5/325 PO PRN (09:50)
[2018-01-02] MEDS: HEPARIN SUB-Q SCH ×2 (09:51→21:36)
[2018-01-02] MEDS: ASPIRIN PO SCH (09:51)
[2018-01-02] MEDS: PAXIL PO SCH (09:51)
[2018-01-02] MEDS: PEPCID PO SCH ×2 (09:51→21:35)
[2018-01-02] MEDS: SODIUM CHLORIDE FLUSH SYRINGE 10 ML IV SCH (09:52)
[2018-01-02] MEDS: ZOFRAN IV PRN (09:59)
--- NOTE | 2018-01-02 09:59 | Progress Note ---
Subjective - Reason for Consult Consult date: 01/02/18 Reason for consult: Psychiatry Follow-up - Chief Complaint Chief complaint: "I do not want to get a divorce" 47 year old WM seen for psychiatric follow up on the telemetry floor. He reports a diagnosis of bipolar disorder, cocaine use disorder, and opioid use disorder, in remission. Today the patient is calm, but still withdrawn during the assessment. He stated that he cannot live without his family. He stated that he do not have a reason to live if his divorce him. He stated that his recreational drug use is cause of his "depression." He still endorses SI's, but would not confirm or deny a suicide plan. He denies any side effects of his medications. Mental Status Exam - Vital signs Last Vital Signs Temp 98.0 F 01/02/18 08:11 Pulse 58 L 01/02/18 08:11 Resp 18 01/02/18 08:11 BP 104/69 01/02/18 08:11 Pulse Ox 94 01/02/18 08:11 - Exam Narrative exam: MSE: Appearance: calm, cooperative Behavior: regular eye contact Speech: regular rate and tone Mood: "depressed" withdrawn Affect: flat Thought Process: circumstantial Thought Content: denies HI's and AVH's Motor Activity: sitting up in bed Cognition: A/O x 3 Insight: variable Judgment: variable Assessment and Plan Impression: Unspecified Mood DO. R/O PTSD. Hx of Substance Use DO and Opioid Use DO. Today the patient is calm, but withdrawn during the assessment. The patient endorses SI's. DDx: MDD, R/O Bipolar DO Recommendations/Plan: Continue 1013 with placement to inpatient psy services. Continue Seroquel 400 mg PO HS for mood/psychosis, Paxil 20 mg PO daily for depression and Vistaril 25 mg PO Q8hrs prn for acute anxiety. Discussed possible metabolic side effects of Seroquel with patient. Discussed possible suicidality/medication induced akin with patient reference Paxil. Discussed generalized coping skills with patient.
[2018-01-02] MEDS: PERCOCET 5/325 PO PRN ×2 (15:39→21:46)
--- NOTE | 2018-01-02 16:37 | Progress Note ---
Assessment and Plan Assessment and plan: /TIA, likely - admitted with stroke protocol, MRI brain showed chronic changes only - cont aspirin, statin, consulted neuro - no abnormality on EEG /Depression with bipolar disorder - cont home meds, consulted mental health /SI, denies now - psych following - on 1013 /h/o drug abuse/dependence - supportive care, UDs negative DVt Px, lovenox Disposition: patient medically clear, need inpt psych placement History Interval history: Patient was seen and examined. Follow-up on current diagnosis. Overnight uneventful. Patient denies any chest pain, shortness breath, nausea/vomiting or severe headaches. Imaging, nursing note, chart, labs and old chart reviewed. Discussed with patient. Hospitalist Physical - Physical exam Narrative exam: GEN: WDWN, NAD, Awake, Alert, Orientated x 2 HEENT: NCAT, EOMI, PERRL, OP Clear NECK: supple, no adenopathy, no thyromegaly, no JVD CVS/HEART: RRR, normal S1S2, pulses present bilaterally CHEST/LUNGS: CTA B, Symmetrical chest expansion, good air entry bilaterally GI/Abdomen: soft, NTND, good bowel sounds, no guarding or rebound /Bladder: no suprapubic tenderness, no CVA or paraspinal tenderness EXT/Skin: no c/c/e, no obvious rash MSK: FROM x 4 Neuro: CN 2-12 grossly intact, no new focal deficits Psych: calm - Constitutional Vitals: Temp Pulse Resp BP Pulse Ox 98.2 F 94 H 20 96/58 94 01/02/18 12:45 01/02/18 12:45 01/02/18 12:45 01/02/18 12:45 01/02/18 08:11 General appearance: Present: no acute distress, well-nourished Results - Labs CBC & Chem 7: 12/28/17 07:05 12/28/17 07:05 Labs: Laboratory Last Values WBC 5.2 K/mm3 (4.5-11.0) 12/28/17 07:05 RBC 4.39 M/mm3 (3.65-5.03) 12/28/17 07:05 Hgb 12.7 gm/dl (11.8-15.2) 12/28/17 07:05 Hct 37.6 % (35.5-45.6) 12/28/17 07:05 MCV 86 fl (84-94) 12/28/17 07:05 MCH 29 pg (28-32) 12/28/17 07:05 MCHC 34 % (32-34) 12/28/17 07:05 RDW 13.9 % (13.2-15.2) 12/28/17 07:05 Plt Count 303 K/mm3 (140-440) 12/28/17 07:05 Lymph % (Auto) 34.8 % (13.4-35.0) 12/28/17 07:05 [place] % (Auto) 10.0 % (0.0-7.3) H 12/28/17 07:05 Eos % (Auto) 9.9 % (0.0-4.3) H 12/28/17 07:05 Baso % (Auto) 0.6 % (0.0-1.8) 12/28/17 07:05 Lymph # 1.8 K/mm3 (1.2-5.4) 12/28/17 07:05 [place] # 0.5 K/mm3 (0.0-0.8) 12/28/17 07:05 Eos # 0.5 K/mm3 (0.0-0.4) H 12/28/17 07:05 Baso # 0.0 K/mm3 (0.0-0.1) 12/28/17 07:05 Seg Neutrophils % 44.7 % (40.0-70.0) 12/28/17 07:05 Seg Neutrophils # 2.3 K/mm3 (1.8-7.7) 12/28/17 07:05 PT 13.3 Sec. (12.2-14.9) 12/27/17 14:40 INR 0.96 (0.87-1.13) 12/27/17 14:40 APTT 33.2 Sec. (24.2-36.6) 12/27/17 14:40 Sodium 140 mmol/L (137-145) 12/28/17 07:05 Potassium 4.5 mmol/L (3.6-5.0) 12/28/17 07:05 Chloride 100.6 mmol/L (98-107) 12/28/17 07:05 Carbon Dioxide 32 mmol/L (22-30) H 12/28/17 07:05 Anion Gap 12 mmol/L 12/28/17 07:05 BUN 18 mg/dL (9-20) 12/28/17 07:05 Creatinine 0.8 mg/dL (0.8-1.5) 12/28/17 07:05 Estimated GFR > 60 ml/min 12/28/17 07:05 BUN/Creatinine Ratio 23 % 12/28/17 07:05 Glucose 77 mg/dL (75-100) 12/28/17 07:05 POC Glucose 87 (70-105) 12/29/17 11:36 Hemoglobin A1c 5.6 % (4-6) 12/27/17 21:29 Calcium 8.7 mg/dL (8.4-10.2) 12/28/17 07:05 Total Bilirubin 0.30 mg/dL (0.1-1.2) 12/28/17 07:05 AST 35 units/L (5-40) 12/28/17 07:05 ALT 29 units/L (7-56) 12/28/17 07:05 Alkaline Phosphatase 108 units/L (35-129) 12/28/17 07:05 Troponin T < 0.010 ng/mL (0.00-0.029) 12/27/17 14:40 Total Protein 5.9 g/dL (6.3-8.2) L 12/28/17 07:05 Albumin 3.4 g/dL (3.9-5) L 12/28/17 07:05 Albumin/Globulin Ratio 1.4 % 12/28/17 07:05 Triglycerides 104 mg/dL (2-149) 12/28/17 07:05 Cholesterol 157 mg/dL (50-199) 12/28/17 07:05 LDL Cholesterol Direct 110 mg/dL (50-130) 12/28/17 07:05 HDL Cholesterol 38 mg/dL (40-59) L 12/28/17 07:05 Cholesterol/HDL Ratio 4.13 % 12/28/17 07:05 TSH 0.961 mlU/mL (0.270-4.200) 12/27/17 13:36 Urine Color Yellow (Yellow) 12/27/17 15:18 Urine Turbidity Clear (Clear) 12/27/17 15:18 Urine pH 6.0 (5.0-7.0) 12/27/17 15:18 Ur Specific [place] 1.008 (1.003-1.030) 12/27/17 15:18 Urine Protein <15 mg/dl mg/dL (Negative) 12/27/17 15:18 Urine Glucose (UA) Neg mg/dL (Negative) 12/27/17 15:18 Urine Ketones Neg mg/dL (Negative) 12/27/17 15:18 Urine Blood Neg (Negative) 12/27/17 15:18 Urine Nitrite Neg (Negative) 12/27/17 15:18 Urine Bilirubin Neg (Negative) 12/27/17 15:18 Urine Urobilinogen < 2.0 mg/dL (<2.0) 12/27/17 15:18 Ur Leukocyte Esterase Neg (Negative) 12/27/17 15:18 Urine WBC (Auto) 2.0 /HPF (0.0-6.0) 12/27/17 15:18 Urine RBC (Auto) < 1.0 /HPF (0.0-6.0) 12/27/17 15:18 Salicylates < 0.3 mg/dL (2.8-20.0) L 12/27/17 13:36 Urine Opiates Screen Presumptive negative 12/27/17 15:18 Urine Methadone Screen Presumptive negative 12/27/17 15:18 Acetaminophen < 5.0 ug/mL (10.0-30.0) L 12/27/17 13:36 Ur Barbiturates Screen Presumptive negative 12/27/17 15:18 Ur Phencyclidine Scrn Presumptive negative 12/27/17 15:18 Ur Amphetamines Screen Presumptive negative 12/27/17 15:18 U Benzodiazepines Scrn Presumptive negative 12/27/17 15:18 Urine Cocaine Screen Presumptive negative 12/27/17 15:18 U Marijuana (THC) Screen Presumptive negative 12/27/17 15:18 Drugs of Abuse Note Disclamer 12/27/17 15:18 Plasma/Serum Alcohol < 0.01 % (0-0.07) 12/27/17 13:36
[2018-01-02] MEDS: HABITROL TD SCH (21:36)
[2018-01-03] MEDS: SODIUM CHLORIDE FLUSH SYRINGE 10 ML IV SCH ×3 (01:00→22:13)
[2018-01-03] MEDS: PEPCID PO SCH ×2 (09:59→22:11)
[2018-01-03] MEDS: PAXIL PO SCH (10:00)
[2018-01-03] MEDS: HEPARIN SUB-Q SCH ×2 (10:00→22:12)
[2018-01-03] MEDS: ASPIRIN PO SCH (10:00)
[2018-01-03] MEDS: NORCO 5/325 PO PRN (10:48)
--- NOTE | 2018-01-03 12:13 | Discharge Summary ---
Providers - Providers Date of Admission: 12/27/17 15:41 Date of discharge: 01/11/18 Attending physician: MARIA FERNANDA RICHMOND 12/27/17 21:20 Consult to Physician [CONS] Routine Comment: Consulting Provider: ANA MORALES Physician Instructions: Reason For Exam: TIA 12/27/17 21:23 Occupational Therapy Evaluate and Treat [CONS] Routine Comment: Reason For Exam: Neuro deficits Physical Therapy Evaluation and Treat [CONS] Routine Comment: Reason For Exam: Neuro deficits 12/27/17 21:24 Consult to Mental Health [CONS] Routine Reason For Exam: suicidal Place consult to:: Mental Health Notified:: Jon ROBERTSONchild care center assistant director physician: DRIER ATTENDANT Hospitalization Condition: Stable Hospital course: Mr. Gilliland is a 47 yo man with a history of MDD, tobacco dependency, ETOH abuse and cocaine abuse who presented AMS TIA, most likely, resolved - admitted with stroke protocol, MRI brain showed chronic changes only - cont aspirin, statin, consulted neuro - no abnormality on EEG Depression with bipolar disorder - mental health following SI, - psych following - on 1012 Nausea: -request oral antiemetics in which phenergan did help -add protonix -ordered am labs h/o drug abuse/dependence - supportive care, UDs negative Left hip pains, acute on chronic OA get xray DVt Px, lovenox On 01/07/18 our actuarial trainee called me because [facility] called her and requested a doctor to doctor for admission. So, I called [phone] and spoke with Nasreen who left a message for Dr. Branch to call me back. He called back later in the day. Basically, he was wondering why I contacted him. He will let me know on Monday regarding admission, pt may need to go to CSU, crisis stabilization unit per Dr. Branch. Disposition: patient medically cleared for inpt psych placement Disposition: DC/TX-65 PSY HOSP/PSY UNIT Time spent for discharge: 32 min Core Measure Documentation - Palliative Care Palliative Care/ Comfort Measures: Not Applicable - Core Measures Any of the following diagnoses?: none - VTE Discharge Requirements Deep Vein Thrombosis/Pulmonary Embolism Present on Admission: No Has pt received <5 days of overlap therapy or INR<2.0: No Anticoagulant overlap therapy prescribed at discharge: No Contraindication No Overlap Therapy order at DC: Not Indicated Exam - Physical Exam Narrative exam: GEN: WDWN, NAD, Awake, Alert, Orientated x 2 HEENT: NCAT, EOMI, PERRL, OP Clear NECK: supple, no adenopathy, no thyromegaly, no JVD CVS/HEART: RRR, normal S1S2, pulses present bilaterally CHEST/LUNGS: CTA B, Symmetrical chest expansion, good air entry bilaterally GI/Abdomen: soft, NTND, good bowel sounds, no guarding or rebound /Bladder: no suprapubic tenderness, no CVA or paraspinal tenderness EXT/Skin: no c/c/e, no obvious rash MSK: FROM x 4 Neuro: CN 2-12 grossly intact, no new focal deficits Psych: calm - Constitutional Vitals: Temp Pulse Resp BP Pulse Ox 98.8 F 62 18 98/61 96 01/03/18 11:03 01/03/18 11:03 01/03/18 11:03 01/03/18 11:03 01/03/18 11:03 Plan Activity: other (no strenous activities until cleared by pcp) Diet: low salt Follow up with: PRIMARY CARE, [Primary Care Provider] - 3-5 Days Prescriptions: AtorvaSTATin [Lipitor] 40 mg PO QHS #30 tablet Aspirin EC [Aspirin Enteric Coated TAB] 81 mg PO QDAY #30 tablet.
--- NOTE | 2018-01-03 13:35 | Progress Note ---
Subjective - Reason for Consult Consult date: 01/03/18 Reason for consult: Psychiatric Follow-up Evaluation - Chief Complaint Chief complaint: "" Patient is a 47 year old WM seen for psychiatric follow up on the telemetry floor. He reports a diagnosis of bipolar disorder, cocaine use disorder, and opioid use disorder, in remission. Today the patient is calm, but still withdrawn during the assessment. He stated that he cannot live without his family. He stated that he do not have a reason to live if his divorce him. He stated that his recreational drug use is cause of his "depression." He still endorses SI's, but would not confirm or deny a suicide plan. He denies any side effects of his medications. Mental Status Exam - Vital signs Last Vital Signs Temp 98.8 F 01/03/18 11:03 Pulse 62 01/03/18 11:03 Resp 18 01/03/18 11:03 BP 98/61 01/03/18 11:03 Pulse Ox 96 01/03/18 11:03 - Exam Narrative exam: Mental Status Exam General Appearance: Causally Dressed-hospital gown Eye Contact: Intermittent Orientation: Alert and oriented x 4 ( person, place, time, and situation) Attitude/Behavior: Cooperative Sensorium: Distracted Psychomotor & Musculoskeletal Activity: Laying in bed Mood: Anxious, irritable, and angry Affect: Constricted Speech/Language: Slow and delayed Thought Processes: Tangential, perseverations Thought Content: Impoverished Perception: + Auditory hallucinations- " I don't want to talk about it" Concentration/Attention: Impaired Suicidal Ideations/Plan: Patient denies Homicidal Ideations/Plan: Patient denies Assessment and Plan Impression: Unspecified Mood DO. R/O PTSD. Hx of Substance Use DO and Opioid Use DO. Today the patient is calm, but withdrawn during the assessment. The patient endorses SI's. DDx: MDD, R/O Bipolar DO Recommendations/Plan: Continue 1013 with placement to inpatient psy services. Continue Seroquel 400 mg PO HS for mood/psychosis, Paxil 20 mg PO daily for depression and Vistaril 25 mg PO Q8hrs prn for acute anxiety. Discussed possible metabolic side effects of Seroquel with patient. Discussed possible suicidality/medication induced akin with patient reference Paxil. Discussed generalized coping skills with patient.
[2018-01-03] MEDS: PERCOCET 5/325 PO PRN (22:11)
[2018-01-03] MEDS: HABITROL TD SCH (22:11)
[2018-01-04] MEDS: SODIUM CHLORIDE FLUSH SYRINGE 10 ML IV SCH ×2 (09:29→22:16)
[2018-01-04] MEDS: PEPCID PO SCH ×2 (09:30→22:13)
[2018-01-04] MEDS: ASPIRIN PO SCH (09:30)
[2018-01-04] MEDS: HEPARIN SUB-Q SCH ×2 (09:32→22:13)
[2018-01-04] MEDS: PAXIL PO SCH (09:32)
[2018-01-04] MEDS: PERCOCET 5/325 PO PRN (09:33)
--- NOTE | 2018-01-04 12:26 | Progress Note ---
Subjective - Reason for Consult Consult date: 01/04/18 Reason for consult: Psychiatry Follow-up - Chief Complaint Chief complaint: "I am tired of my life" Patient is a 47 year old WM seen for psychiatric follow up on the telemetry floor. He reports a diagnosis of bipolar disorder, cocaine use disorder, and opioid use disorder, in remission. Today the patient is calm, but still withdrawn during the assessment. He stated that he spoke with his about their marriage. He stated that she still want a divorce, but asked for another chance with her. He stated that his sleep is erratic and experiencing voices. He stated, "I can't explain what the voices are saying." He still endorses SI's when asked. He denies VH's. He denies any side effects of his medications. Mental Status Exam - Vital signs Last Vital Signs Temp 97.8 F 01/04/18 11:18 Pulse 64 01/04/18 11:18 Resp 20 01/04/18 11:18 BP 108/65 01/04/18 11:18 Pulse Ox 97 01/04/18 11:18 - Exam Narrative exam: MSE: Appearance: calm, cooperative Behavior: regular eye contact Speech: regular rate and tone Mood: "depressed" withdrawn Affect: flat Thought Process: circumstantial Thought Content: denies HI's and VH's Motor Activity: sitting up in bed Cognition: A/O x 3 Insight: variable Judgment: variable Assessment and Plan Impression: Unspecified Mood DO. R/O PTSD. Hx of Substance Use DO and Opioid Use DO. Today the patient is calm, but withdrawn during the assessment. The patient endorses SI's. The patient is experiencing AH's. DDx: MDD, R/O Bipolar DO Recommendations/Plan: Continue 1013 with placement to inpatient psy services. Increase Seroquel to 500 mg PO HS for mood/psychosis, Paxil 20 mg PO daily for depression and Vistaril 25 mg PO Q8hrs prn for acute anxiety. Discussed possible metabolic side effects of Seroquel with patient. Discussed possible suicidality/medication induced akin with patient reference Paxil. Discussed generalized coping skills with patient.
[2018-01-04] MEDS: ATARAX PO PRN ×2 (14:30→22:12)
--- NOTE | 2018-01-04 14:52 | Progress Note ---
Assessment and Plan Assessment and plan: Mr. Gilliland is a 47 yo man with a history of MDD, tobacco dependency, ETOH abuse and cocaine abuse who presented AMS TIA, likely - admitted with stroke protocol, MRI brain showed chronic changes only - cont aspirin, statin, consulted neuro - no abnormality on EEG Depression with bipolar disorder - cont home meds, consulted mental health SI, - psych following - on 1013 h/o drug abuse/dependence - supportive care, UDs negative DVt Px, lovenox Disposition: patient medically cleared for inpt psych placement History Interval history: Patient was seen and examined. Follow-up on current diagnosis of SI. Overnight uneventful. Patient denies any chest pain, shortness breath, nausea/vomiting or severe headaches. Imaging, nursing note, chart, labs and old chart reviewed. Discussed with patient. Hospitalist Physical - Physical exam Narrative exam: GEN: WDWN, NAD, Awake, Alert, Orientated x 3 HEENT: NCAT, EOMI, PERRL, OP Clear NECK: supple, no adenopathy, no thyromegaly, no JVD CVS/HEART: RRR, normal S1S2, pulses present bilaterally CHEST/LUNGS: CTA B, Symmetrical chest expansion, good air entry bilaterally GI/Abdomen: soft, NTND, good bowel sounds, no guarding or rebound /Bladder: no suprapubic tenderness, no CVA or paraspinal tenderness EXT/Skin: no c/c/e, no obvious rash MSK: FROM x 4 Neuro: CN 2-12 grossly intact, no new focal deficits Psych: calm - Constitutional Vitals: Temp Pulse Resp BP Pulse Ox 97.8 F 64 20 108/65 97 01/04/18 11:18 01/04/18 11:18 01/04/18 11:18 01/04/18 11:18 01/04/18 11:18 General appearance: Present: no acute distress, well-nourished Results - Labs CBC & Chem 7: 12/28/17 07:05 12/28/17 07:05 Labs: Laboratory Last Values WBC 5.2 K/mm3 (4.5-11.0) 12/28/17 07:05 RBC 4.39 M/mm3 (3.65-5.03) 12/28/17 07:05 Hgb 12.7 gm/dl (11.8-15.2) 12/28/17 07:05 Hct 37.6 % (35.5-45.6) 12/28/17 07:05 MCV 86 fl (84-94) 12/28/17 07:05 MCH 29 pg (28-32) 12/28/17 07:05 MCHC 34 % (32-34) 12/28/17 07:05 RDW 13.9 % (13.2-15.2) 12/28/17 07:05 Plt Count 303 K/mm3 (140-440) 12/28/17 07:05 Lymph % (Auto) 34.8 % (13.4-35.0) 12/28/17 07:05 [place] % (Auto) 10.0 % (0.0-7.3) H 12/28/17 07:05 Eos % (Auto) 9.9 % (0.0-4.3) H 12/28/17 07:05 Baso % (Auto) 0.6 % (0.0-1.8) 12/28/17 07:05 Lymph # 1.8 K/mm3 (1.2-5.4) 12/28/17 07:05 [place] # 0.5 K/mm3 (0.0-0.8) 12/28/17 07:05 Eos # 0.5 K/mm3 (0.0-0.4) H 12/28/17 07:05 Baso # 0.0 K/mm3 (0.0-0.1) 12/28/17 07:05 Seg Neutrophils % 44.7 % (40.0-70.0) 12/28/17 07:05 Seg Neutrophils # 2.3 K/mm3 (1.8-7.7) 12/28/17 07:05 PT 13.3 Sec. (12.2-14.9) 12/27/17 14:40 INR 0.96 (0.87-1.13) 12/27/17 14:40 APTT 33.2 Sec. (24.2-36.6) 12/27/17 14:40 Sodium 140 mmol/L (137-145) 12/28/17 07:05 Potassium 4.5 mmol/L (3.6-5.0) 12/28/17 07:05 Chloride 100.6 mmol/L (98-107) 12/28/17 07:05 Carbon Dioxide 32 mmol/L (22-30) H 12/28/17 07:05 Anion Gap 12 mmol/L 12/28/17 07:05 BUN 18 mg/dL (9-20) 12/28/17 07:05 Creatinine 0.8 mg/dL (0.8-1.5) 12/28/17 07:05 Estimated GFR > 60 ml/min 12/28/17 07:05 BUN/Creatinine Ratio 23 % 12/28/17 07:05 Glucose 77 mg/dL (75-100) 12/28/17 07:05 POC Glucose 87 (70-105) 12/29/17 11:36 Hemoglobin A1c 5.6 % (4-6) 12/27/17 21:29 Calcium 8.7 mg/dL (8.4-10.2) 12/28/17 07:05 Total Bilirubin 0.30 mg/dL (0.1-1.2) 12/28/17 07:05 AST 35 units/L (5-40) 12/28/17 07:05 ALT 29 units/L (7-56) 12/28/17 07:05 Alkaline Phosphatase 108 units/L (35-129) 12/28/17 07:05 Troponin T < 0.010 ng/mL (0.00-0.029) 12/27/17 14:40 Total Protein 5.9 g/dL (6.3-8.2) L 12/28/17 07:05 Albumin 3.4 g/dL (3.9-5) L 12/28/17 07:05 Albumin/Globulin Ratio 1.4 % 12/28/17 07:05 Triglycerides 104 mg/dL (2-149) 12/28/17 07:05 Cholesterol 157 mg/dL (50-199) 12/28/17 07:05 LDL Cholesterol Direct 110 mg/dL (50-130) 12/28/17 07:05 HDL Cholesterol 38 mg/dL (40-59) L 12/28/17 07:05 Cholesterol/HDL Ratio 4.13 % 12/28/17 07:05 TSH 0.961 mlU/mL (0.270-4.200) 12/27/17 13:36 Urine Color Yellow (Yellow) 12/27/17 15:18 Urine Turbidity Clear (Clear) 12/27/17 15:18 Urine pH 6.0 (5.0-7.0) 12/27/17 15:18 Ur Specific [place] 1.008 (1.003-1.030) 12/27/17 15:18 Urine Protein <15 mg/dl mg/dL (Negative) 12/27/17 15:18 Urine Glucose (UA) Neg mg/dL (Negative) 12/27/17 15:18 Urine Ketones Neg mg/dL (Negative) 12/27/17 15:18 Urine Blood Neg (Negative) 12/27/17 15:18 Urine Nitrite Neg (Negative) 12/27/17 15:18 Urine Bilirubin Neg (Negative) 12/27/17 15:18 Urine Urobilinogen < 2.0 mg/dL (<2.0) 12/27/17 15:18 Ur Leukocyte Esterase Neg (Negative) 12/27/17 15:18 Urine WBC (Auto) 2.0 /HPF (0.0-6.0) 12/27/17 15:18 Urine RBC (Auto) < 1.0 /HPF (0.0-6.0) 12/27/17 15:18 Salicylates < 0.3 mg/dL (2.8-20.0) L 12/27/17 13:36 Urine Opiates Screen Presumptive negative 12/27/17 15:18 Urine Methadone Screen Presumptive negative 12/27/17 15:18 Acetaminophen < 5.0 ug/mL (10.0-30.0) L 12/27/17 13:36 Ur Barbiturates Screen Presumptive negative 12/27/17 15:18 Ur Phencyclidine Scrn Presumptive negative 12/27/17 15:18 Ur Amphetamines Screen Presumptive negative 12/27/17 15:18 U Benzodiazepines Scrn Presumptive negative 12/27/17 15:18 Urine Cocaine Screen Presumptive negative 12/27/17 15:18 U Marijuana (THC) Screen Presumptive negative 12/27/17 15:18 Drugs of Abuse Note Disclamer 12/27/17 15:18 Plasma/Serum Alcohol < 0.01 % (0-0.07) 12/27/17 13:36
[2018-01-04] MEDS: NORCO 5/325 PO PRN (22:12)
[2018-01-04] MEDS: HABITROL TD SCH (22:13)
[2018-01-05] MEDS: PEPCID PO SCH ×2 (10:02→21:31)
[2018-01-05] MEDS: ASPIRIN PO SCH (10:02)
[2018-01-05] MEDS: PAXIL PO SCH (10:02)
[2018-01-05] MEDS: HEPARIN SUB-Q SCH ×2 (10:02→21:34)
[2018-01-05] MEDS: PERCOCET 5/325 PO PRN ×2 (10:03→16:23)
[2018-01-05] MEDS: SODIUM CHLORIDE FLUSH SYRINGE 10 ML IV SCH ×2 (10:03→21:39)
--- NOTE | 2018-01-05 11:39 | Progress Note ---
Subjective - Reason for Consult Consult date: 01/05/18 Reason for consult: Psychiatry Follow-up - Chief Complaint Chief complaint: "I don't want a divorce" Patient is a 47 year old WM seen for psychiatric follow up on the telemetry floor. He reports a diagnosis of bipolar disorder, cocaine use disorder, and opioid use disorder, in remission. Today the patient is calm, but still withdrawn during the assessment. He stated that he continues to speak with his daily because he does not want a . He continues to endorse SI's with a plan to hang himself. He stated that he is trying to ignore the SI's he is experiencing. He denies HI's and AVH's. He denies any side effects of his medications. Mental Status Exam - Vital signs Last Vital Signs Temp 98.7 F 01/04/18 23:14 Pulse 63 01/04/18 23:14 Resp 20 01/04/18 23:14 BP 113/72 01/04/18 23:14 Pulse Ox 75 L 01/04/18 23:14 - Exam Narrative exam: MSE: Appearance: calm, cooperative Behavior: regular eye contact Speech: regular rate and tone Mood: "depressed" withdrawn Affect: flat Thought Process: circumstantial Thought Content: denies HI's and AVH's Motor Activity: sitting up in bed Cognition: A/O x 3 Insight: variable Judgment: variable Assessment and Plan Impression: Unspecified Mood DO. R/O PTSD. Hx of Substance Use DO and Opioid Use DO. Today the patient is calm, but withdrawn during the assessment. The patient endorses SI's. DDx: MDD, R/O Bipolar DO Recommendations/Plan: Continue 1013 with placement to inpatient psy services. Continue Seroquel 500 mg PO HS for mood/psychosis, Paxil 20 mg PO daily for depression and Vistaril 25 mg PO Q8hrs prn for acute anxiety. Discussed possible metabolic side effects of Seroquel with patient. Discussed possible suicidality/medication induced akin with patient reference Paxil. Discussed generalized coping skills with patient.
[2018-01-05] MEDS: VISTARIL PO PRN (16:22)
[2018-01-05] MEDS: PHENERGAN PO PRN (17:49)
[2018-01-05] MEDS: HABITROL TD SCH (21:29)
[2018-01-05] MEDS: NORCO 5/325 PO PRN (21:33)
[2018-01-05] MEDS: ATARAX PO PRN (21:34)
[2018-01-06] MEDS: PAXIL PO SCH (10:29)
[2018-01-06] MEDS: ASPIRIN PO SCH (10:29)
[2018-01-06] MEDS: HEPARIN SUB-Q SCH ×2 (10:29→21:59)
[2018-01-06] MEDS: PEPCID PO SCH ×2 (10:29→21:58)
[2018-01-06] MEDS: SODIUM CHLORIDE FLUSH SYRINGE 10 ML IV SCH ×2 (10:30→22:02)
[2018-01-06] MEDS: NORCO 5/325 PO PRN ×2 (10:40→16:43)
--- NOTE | 2018-01-06 12:01 | Progress Note ---
Assessment and Plan Assessment and plan: Mr. Gilliland is a 47 yo man with a history of MDD, tobacco dependency, ETOH abuse and cocaine abuse who presented AMS TIA, likely - admitted with stroke protocol, MRI brain showed chronic changes only - cont aspirin, statin, consulted neuro - no abnormality on EEG Depression with bipolar disorder - mental health following SI, - psych following - on 1012 Nausea: -request oral antiemetics in which phenergan did help -add protonix -ordered am labs h/o drug abuse/dependence - supportive care, UDs negative DVt Px, lovenox Disposition: patient medically cleared for inpt psych placement am labs ordered, check h/h and electrolytes History Interval history: Patient was seen and examined. Follow-up on current diagnosis of SI. Overnight uneventful. Patient denies any chest pain, shortness breath, or severe headaches. Imaging, nursing note, chart, labs and old chart reviewed. Discussed with patient. He c/o nausea but no vomiting or abd pains. Hospitalist Physical - Physical exam Narrative exam: GEN: WDWN, NAD, Awake, Alert, Orientated x 3 HEENT: NCAT, EOMI, PERRL, OP Clear NECK: supple, no adenopathy, no thyromegaly, no JVD CVS/HEART: RRR, normal S1S2, pulses present bilaterally CHEST/LUNGS: CTA B, Symmetrical chest expansion, good air entry bilaterally GI/Abdomen: soft, NTND, good bowel sounds, no guarding or rebound /Bladder: no suprapubic tenderness, no CVA or paraspinal tenderness EXT/Skin: no c/c/e, no obvious rash MSK: FROM x 4 Neuro: CN 2-12 grossly intact, no new focal deficits Psych: calm - Constitutional Vitals: Temp Pulse Resp BP Pulse Ox 98.6 F 65 18 99/61 95 01/06/18 11:34 01/06/18 11:34 01/06/18 11:34 01/06/18 11:34 01/06/18 11:34 General appearance: Present: no acute distress, well-nourished Results - Labs CBC & Chem 7: 12/28/17 07:05 12/28/17 07:05 Labs: Laboratory Last Values WBC 5.2 K/mm3 (4.5-11.0) 12/28/17 07:05 RBC 4.39 M/mm3 (3.65-5.03) 12/28/17 07:05 Hgb 12.7 gm/dl (11.8-15.2) 12/28/17 07:05 Hct 37.6 % (35.5-45.6) 12/28/17 07:05 MCV 86 fl (84-94) 12/28/17 07:05 MCH 29 pg (28-32) 12/28/17 07:05 MCHC 34 % (32-34) 12/28/17 07:05 RDW 13.9 % (13.2-15.2) 12/28/17 07:05 Plt Count 303 K/mm3 (140-440) 12/28/17 07:05 Lymph % (Auto) 34.8 % (13.4-35.0) 12/28/17 07:05 [place] % (Auto) 10.0 % (0.0-7.3) H 12/28/17 07:05 Eos % (Auto) 9.9 % (0.0-4.3) H 12/28/17 07:05 Baso % (Auto) 0.6 % (0.0-1.8) 12/28/17 07:05 Lymph # 1.8 K/mm3 (1.2-5.4) 12/28/17 07:05 [place] # 0.5 K/mm3 (0.0-0.8) 12/28/17 07:05 Eos # 0.5 K/mm3 (0.0-0.4) H 12/28/17 07:05 Baso # 0.0 K/mm3 (0.0-0.1) 12/28/17 07:05 Seg Neutrophils % 44.7 % (40.0-70.0) 12/28/17 07:05 Seg Neutrophils # 2.3 K/mm3 (1.8-7.7) 12/28/17 07:05 PT 13.3 Sec. (12.2-14.9) 12/27/17 14:40 INR 0.96 (0.87-1.13) 12/27/17 14:40 APTT 33.2 Sec. (24.2-36.6) 12/27/17 14:40 Sodium 140 mmol/L (137-145) 12/28/17 07:05 Potassium 4.5 mmol/L (3.6-5.0) 12/28/17 07:05 Chloride 100.6 mmol/L (98-107) 12/28/17 07:05 Carbon Dioxide 32 mmol/L (22-30) H 12/28/17 07:05 Anion Gap 12 mmol/L 12/28/17 07:05 BUN 18 mg/dL (9-20) 12/28/17 07:05 Creatinine 0.8 mg/dL (0.8-1.5) 12/28/17 07:05 Estimated GFR > 60 ml/min 12/28/17 07:05 BUN/Creatinine Ratio 23 % 12/28/17 07:05 Glucose 77 mg/dL (75-100) 12/28/17 07:05 POC Glucose 87 (70-105) 12/29/17 11:36 Hemoglobin A1c 5.6 % (4-6) 12/27/17 21:29 Calcium 8.7 mg/dL (8.4-10.2) 12/28/17 07:05 Total Bilirubin 0.30 mg/dL (0.1-1.2) 12/28/17 07:05 AST 35 units/L (5-40) 12/28/17 07:05 ALT 29 units/L (7-56) 12/28/17 07:05 Alkaline Phosphatase 108 units/L (35-129) 12/28/17 07:05 Troponin T < 0.010 ng/mL (0.00-0.029) 12/27/17 14:40 Total Protein 5.9 g/dL (6.3-8.2) L 12/28/17 07:05 Albumin 3.4 g/dL (3.9-5) L 12/28/17 07:05 Albumin/Globulin Ratio 1.4 % 12/28/17 07:05 Triglycerides 104 mg/dL (2-149) 12/28/17 07:05 Cholesterol 157 mg/dL (50-199) 12/28/17 07:05 LDL Cholesterol Direct 110 mg/dL (50-130) 12/28/17 07:05 HDL Cholesterol 38 mg/dL (40-59) L 12/28/17 07:05 Cholesterol/HDL Ratio 4.13 % 12/28/17 07:05 TSH 0.961 mlU/mL (0.270-4.200) 12/27/17 13:36 Urine Color Yellow (Yellow) 12/27/17 15:18 Urine Turbidity Clear (Clear) 12/27/17 15:18 Urine pH 6.0 (5.0-7.0) 12/27/17 15:18 Ur Specific [place] 1.008 (1.003-1.030) 12/27/17 15:18 Urine Protein <15 mg/dl mg/dL (Negative) 12/27/17 15:18 Urine Glucose (UA) Neg mg/dL (Negative) 12/27/17 15:18 Urine Ketones Neg mg/dL (Negative) 12/27/17 15:18 Urine Blood Neg (Negative) 12/27/17 15:18 Urine Nitrite Neg (Negative) 12/27/17 15:18 Urine Bilirubin Neg (Negative) 12/27/17 15:18 Urine Urobilinogen < 2.0 mg/dL (<2.0) 12/27/17 15:18 Ur Leukocyte Esterase Neg (Negative) 12/27/17 15:18 Urine WBC (Auto) 2.0 /HPF (0.0-6.0) 12/27/17 15:18 Urine RBC (Auto) < 1.0 /HPF (0.0-6.0) 12/27/17 15:18 Salicylates < 0.3 mg/dL (2.8-20.0) L 12/27/17 13:36 Urine Opiates Screen Presumptive negative 12/27/17 15:18 Urine Methadone Screen Presumptive negative 12/27/17 15:18 Acetaminophen < 5.0 ug/mL (10.0-30.0) L 12/27/17 13:36 Ur Barbiturates Screen Presumptive negative 12/27/17 15:18 Ur Phencyclidine Scrn Presumptive negative 12/27/17 15:18 Ur Amphetamines Screen Presumptive negative 12/27/17 15:18 U Benzodiazepines Scrn Presumptive negative 12/27/17 15:18 Urine Cocaine Screen Presumptive negative 12/27/17 15:18 U Marijuana (THC) Screen Presumptive negative 12/27/17 15:18 Drugs of Abuse Note Disclamer 12/27/17 15:18 Plasma/Serum Alcohol < 0.01 % (0-0.07) 12/27/17 13:36
[2018-01-06] MEDS: PHENERGAN PO PRN (16:46)
[2018-01-06] MEDS: ATARAX PO PRN (18:25)
[2018-01-06] MEDS: HABITROL TD SCH (22:03)
[2018-01-06] MEDS: PERCOCET 5/325 PO PRN (22:16)
[2018-01-07 08:23] LABS: Hematocrit 38.9 % (35.5-45.6); Hemoglobin 13.2 gm/dl (11.8-15.2); Mean Corpuscular HGB Conc 34 % (32-34); Mean Corpuscular Hemoglobin 29 pg (28-32); Mean Corpuscular Volume 84 fl (84-94); Platelet Count 302 K/mm3 (140-440); Red Blood Count 4.61 M/mm3 (3.65-5.03)
[2018-01-07 08:32] LABS: BUN/Creatinine Ratio 22; Blood Urea Nitrogen 22 mg/dL (9-20); Calcium 8.6 mg/dL (8.4-10.2); Hemolysis Index 5
[2018-01-07] MEDS: HEPARIN SUB-Q SCH ×2 (09:43→21:52)
[2018-01-07] MEDS: ASPIRIN PO SCH (09:43)
[2018-01-07] MEDS: PAXIL PO SCH (09:43)
[2018-01-07] MEDS: PEPCID PO SCH ×2 (09:43→22:03)
--- NOTE | 2018-01-07 09:59 | Progress Note ---
Assessment and Plan Assessment and plan: Mr. Gilliland is a 47 yo man with a history of MDD, tobacco dependency, ETOH abuse and cocaine abuse who presented AMS TIA, most likely, resolved - admitted with stroke protocol, MRI brain showed chronic changes only - cont aspirin, statin, consulted neuro - no abnormality on EEG Depression with bipolar disorder - mental health following SI, - psych following - on 1012 Nausea: -request oral antiemetics in which phenergan did help -add protonix -ordered am labs h/o drug abuse/dependence - supportive care, UDs negative DVt Px, lovenox Disposition: patient medically cleared for inpt psych placement am labs ordered, check h/h and electrolytes-->stable cake maker called me because [facility] called her and requested a doctor to doctor for admission call @ [phone]. I spoke with Nasreen who left a message for Dr. Branch to call me back. History Interval history: Patient was seen and examined. Follow-up on current diagnosis of SI. Overnight uneventful. Patient denies any chest pain, shortness breath, or severe headaches. Imaging, nursing note, chart, labs and old chart reviewed. Discussed with patient. He c/o nausea but no vomiting or abd pains. Hospitalist Physical - Physical exam Narrative exam: GEN: WDWN, NAD, Awake, Alert, Orientated x 3 HEENT: NCAT, EOMI, PERRL, OP Clear NECK: supple, no adenopathy, no thyromegaly, no JVD CVS/HEART: RRR, normal S1S2, pulses present bilaterally CHEST/LUNGS: CTA B, Symmetrical chest expansion, good air entry bilaterally GI/Abdomen: soft, NTND, good bowel sounds, no guarding or rebound /Bladder: no suprapubic tenderness, no CVA or paraspinal tenderness EXT/Skin: no c/c/e, no obvious rash MSK: FROM x 4 Neuro: CN 2-12 grossly intact, no new focal deficits Psych: calm - Constitutional Vitals: Temp Pulse Resp BP Pulse Ox 97.9 F 50 L 20 98/60 97 01/07/18 05:42 01/07/18 05:42 01/07/18 05:42 01/07/18 05:42 01/07/18 05:42 General appearance: Present: no acute distress, well-nourished Results - Labs CBC & Chem 7: 07/22/18 06:49 07 06:49 Labs: Laboratory Last Values WBC 7.4 K/mm3 (4.5-11.0) 01/07/18 06:49 RBC 4.61 M/mm3 (3.65-5.03) 01/07/18 06:49 Hgb 13.2 gm/dl (11.8-15.2) 01/07/18 06:49 Hct 38.9 % (35.5-45.6) 01/07/18 06:49 MCV 84 fl (84-94) 01/07/18 06:49 MCH 29 pg (28-32) 01/07/18 06:49 MCHC 34 % (32-34) 01/07/18 06:49 RDW 14.0 % (13.2-15.2) 01/07/18 06:49 Plt Count 302 K/mm3 (140-440) 01/07/18 06:49 Lymph % (Auto) 34.8 % (13.4-35.0) 12/28/17 07:05 [place] % (Auto) 10.0 % (0.0-7.3) H 12/28/17 07:05 Eos % (Auto) 9.9 % (0.0-4.3) H 12/28/17 07:05 Baso % (Auto) 0.6 % (0.0-1.8) 12/28/17 07:05 Lymph # 1.8 K/mm3 (1.2-5.4) 12/28/17 07:05 [place] # 0.5 K/mm3 (0.0-0.8) 12/28/17 07:05 Eos # 0.5 K/mm3 (0.0-0.4) H 12/28/17 07:05 Baso # 0.0 K/mm3 (0.0-0.1) 12/28/17 07:05 Seg Neutrophils % 44.7 % (40.0-70.0) 12/28/17 07:05 Seg Neutrophils # 2.3 K/mm3 (1.8-7.7) 12/28/17 07:05 PT 13.3 Sec. (12.2-14.9) 12/27/17 14:40 INR 0.96 (0.87-1.13) 12/27/17 14:40 APTT 33.2 Sec. (24.2-36.6) 12/27/17 14:40 Sodium 141 mmol/L (137-145) 01/07/18 06:49 Potassium 4.3 mmol/L (3.6-5.0) 01/07/18 06:49 Chloride 101.0 mmol/L (98-107) 01/07/18 06:49 Carbon Dioxide 30 mmol/L (22-30) 01/07/18 06:49 Anion Gap 14 mmol/L 01/07/18 06:49 BUN 22 mg/dL (9-20) H 01/07/18 06:49 Creatinine 1.0 mg/dL (0.8-1.5) 01/07/18 06:49 Estimated GFR > 60 ml/min 01/07/18 06:49 BUN/Creatinine Ratio 22 % 01/07/18 06:49 Glucose 83 mg/dL (75-100) 01/07/18 06:49 POC Glucose 87 (70-105) 12/29/17 11:36 Hemoglobin A1c 5.6 % (4-6) 12/27/17 21:29 Calcium 8.6 mg/dL (8.4-10.2) 01/07/18 06:49 Total Bilirubin 0.30 mg/dL (0.1-1.2) 12/28/17 07:05 AST 35 units/L (5-40) 12/28/17 07:05 ALT 29 units/L (7-56) 12/28/17 07:05 Alkaline Phosphatase 108 units/L (35-129) 12/28/17 07:05 Troponin T < 0.010 ng/mL (0.00-0.029) 12/27/17 14:40 Total Protein 5.9 g/dL (6.3-8.2) L 12/28/17 07:05 Albumin 3.4 g/dL (3.9-5) L 12/28/17 07:05 Albumin/Globulin Ratio 1.4 % 12/28/17 07:05 Triglycerides 104 mg/dL (2-149) 12/28/17 07:05 Cholesterol 157 mg/dL (50-199) 12/28/17 07:05 LDL Cholesterol Direct 110 mg/dL (50-130) 12/28/17 07:05 HDL Cholesterol 38 mg/dL (40-59) L 12/28/17 07:05 Cholesterol/HDL Ratio 4.13 % 12/28/17 07:05 TSH 0.961 mlU/mL (0.270-4.200) 12/27/17 13:36 Urine Color Yellow (Yellow) 12/27/17 15:18 Urine Turbidity Clear (Clear) 12/27/17 15:18 Urine pH 6.0 (5.0-7.0) 12/27/17 15:18 Ur Specific [place] 1.008 (1.003-1.030) 12/27/17 15:18 Urine Protein <15 mg/dl mg/dL (Negative) 12/27/17 15:18 Urine Glucose (UA) Neg mg/dL (Negative) 12/27/17 15:18 Urine Ketones Neg mg/dL (Negative) 12/27/17 15:18 Urine Blood Neg (Negative) 12/27/17 15:18 Urine Nitrite Neg (Negative) 12/27/17 15:18 Urine Bilirubin Neg (Negative) 12/27/17 15:18 Urine Urobilinogen < 2.0 mg/dL (<2.0) 12/27/17 15:18 Ur Leukocyte Esterase Neg (Negative) 12/27/17 15:18 Urine WBC (Auto) 2.0 /HPF (0.0-6.0) 12/27/17 15:18 Urine RBC (Auto) < 1.0 /HPF (0.0-6.0) 12/27/17 15:18 Salicylates < 0.3 mg/dL (2.8-20.0) L 12/27/17 13:36 Urine Opiates Screen Presumptive negative 12/27/17 15:18 Urine Methadone Screen Presumptive negative 12/27/17 15:18 Acetaminophen < 5.0 ug/mL (10.0-30.0) L 12/27/17 13:36 Ur Barbiturates Screen Presumptive negative 12/27/17 15:18 Ur Phencyclidine Scrn Presumptive negative 12/27/17 15:18 Ur Amphetamines Screen Presumptive negative 12/27/17 15:18 U Benzodiazepines Scrn Presumptive negative 12/27/17 15:18 Urine Cocaine Screen Presumptive negative 12/27/17 15:18 U Marijuana (THC) Screen Presumptive negative 12/27/17 15:18 Drugs of Abuse Note Disclamer 12/27/17 15:18 Plasma/Serum Alcohol < 0.01 % (0-0.07) 12/27/17 13:36
[2018-01-07] MEDS: PERCOCET 5/325 PO PRN (10:16)
[2018-01-07] MEDS: SODIUM CHLORIDE FLUSH SYRINGE 10 ML IV SCH (10:17)
--- NOTE | 2018-01-07 10:54 | Progress Note ---
Subjective - Reason for Consult Consult date: 01/07/18 Reason for consult: Psychiatry Follow-up - Chief Complaint Chief complaint: "I am still depressed" Patient is a 47 year old WM seen for psychiatric follow up on the telemetry floor. He reports a diagnosis of bipolar disorder, cocaine use disorder, and opioid use disorder, in remission. Today the patient is calm, but still withdrawn during the assessment. He stated that his depression is getting worse. He rate his depression 9/10, with 10 being the worse. He continues to endorse SI's with a plan to hang himself. He denies HI's and AVH's. He denies any side effects of his medications. Mental Status Exam - Vital signs Last Vital Signs Temp 97.9 F 01/07/18 05:42 Pulse 50 L 01/07/18 05:42 Resp 20 01/07/18 05:42 BP 98/60 01/07/18 05:42 Pulse Ox 97 01/07/18 05:42 - Exam Narrative exam: MSE: Appearance: calm, cooperative Behavior: regular eye contact Speech: regular rate and tone Mood: "depressed" withdrawn Affect: flat Thought Process: circumstantial Thought Content: denies HI's and AVH's Motor Activity: sitting up in bed Cognition: A/O x 3 Insight: variable Judgment: variable Assessment and Plan Impression: Unspecified Mood DO. R/O PTSD. Hx of Substance Use DO and Opioid Use DO. Today the patient is calm, but withdrawn during the assessment. The patient endorses SI's. DDx: MDD, R/O Bipolar DO Recommendations/Plan: The patient 1013 had to be extended. The patient is pending at [facility]. Continue Seroquel 500 mg PO HS for mood/psychosis and Vistaril 25 mg PO Q8hrs prn for acute anxiety. Increase Paxil to 30 mg PO daily for depression. Discussed possible metabolic side effects of Seroquel with patient. Discussed possible suicidality/medication induced akin with patient reference Paxil. Discussed generalized coping skills with patient.
[2018-01-07] MEDS ORDERED: PAXIL PO SCH (11:00)
[2018-01-07] MEDS: ATARAX PO PRN (14:40)
[2018-01-07] MEDS: NORCO 5/325 PO PRN ×2 (15:24→21:55)
[2018-01-07] MEDS: HABITROL TD SCH (21:51)
[2018-01-08] MEDS: VISTARIL PO PRN (09:09)
--- NOTE | 2018-01-08 10:03 | Progress Note ---
Assessment and Plan Assessment and plan: Mr. Gilliland is a 47 yo man with a history of MDD, tobacco dependency, ETOH abuse and cocaine abuse who presented AMS TIA, most likely, resolved - admitted with stroke protocol, MRI brain showed chronic changes only - cont aspirin, statin, consulted neuro - no abnormality on EEG Depression with bipolar disorder - mental health following SI, - psych following - on 1012 Nausea: -request oral antiemetics in which phenergan did help -add protonix -ordered am labs h/o drug abuse/dependence - supportive care, UDs negative Left hip pains, acute on chronic OA get xray DVt Px, lovenox Disposition: patient medically cleared for inpt psych placement am labs ordered, check h/h and electrolytes-->stable 01/07/18: machine spring former called me because [facility] called her and requested a doctor to doctor for admission call @ [phone]. I spoke with Nasreen who left a message for Dr. Branch to call me back. I spoke with him and he will let me know, pt may need to go to CSU, crisis stabilization unit. History Interval history: Patient was seen and examined. Follow-up on current diagnosis of SI. Overnight uneventful. Patient denies any chest pain, shortness breath, or severe headaches. Imaging, nursing note, chart, labs and old chart reviewed. Discussed with patient. He c/o nausea but no vomiting or abd pains. Left hip pain Hospitalist Physical - Physical exam Narrative exam: GEN: WDWN, NAD, Awake, Alert, Orientated x 3 HEENT: NCAT, EOMI, PERRL, OP Clear NECK: supple, no adenopathy, no thyromegaly, no JVD CVS/HEART: RRR, normal S1S2, pulses present bilaterally CHEST/LUNGS: CTA B, Symmetrical chest expansion, good air entry bilaterally GI/Abdomen: soft, NTND, good bowel sounds, no guarding or rebound /Bladder: no suprapubic tenderness, no CVA or paraspinal tenderness EXT/Skin: no c/c/e, no obvious rash MSK: FROM x 4 Neuro: CN 2-12 grossly intact, no new focal deficits Psych: calm - Constitutional Vitals: Temp Pulse Resp BP Pulse Ox 98.1 F 54 L 20 103/61 96 01/08/18 06:54 01/08/18 06:54 01/08/18 06:54 01/08/18 06:54 01/08/18 06:54 General appearance: Present: no acute distress, well-nourished Results - Labs CBC & Chem 7: 01/07/18 06:49 07 06:49 Labs: Laboratory Last Values WBC 7.4 K/mm3 (4.5-11.0) 01/07/18 06:49 RBC 4.61 M/mm3 (3.65-5.03) 01/07/18 06:49 Hgb 13.2 gm/dl (11.8-15.2) 01/07/18 06:49 Hct 38.9 % (35.5-45.6) 01/07/18 06:49 MCV 84 fl (84-94) 01/07/18 06:49 MCH 29 pg (28-32) 01/07/18 06:49 MCHC 34 % (32-34) 01/07/18 06:49 RDW 14.0 % (13.2-15.2) 01/07/18 06:49 Plt Count 302 K/mm3 (140-440) 01/07/18 06:49 Lymph % (Auto) 34.8 % (13.4-35.0) 12/28/17 07:05 [place] % (Auto) 10.0 % (0.0-7.3) H 12/28/17 07:05 Eos % (Auto) 9.9 % (0.0-4.3) H 12/28/17 07:05 Baso % (Auto) 0.6 % (0.0-1.8) 12/28/17 07:05 Lymph # 1.8 K/mm3 (1.2-5.4) 12/28/17 07:05 [place] # 0.5 K/mm3 (0.0-0.8) 12/28/17 07:05 Eos # 0.5 K/mm3 (0.0-0.4) H 12/28/17 07:05 Baso # 0.0 K/mm3 (0.0-0.1) 12/28/17 07:05 Seg Neutrophils % 44.7 % (40.0-70.0) 12/28/17 07:05 Seg Neutrophils # 2.3 K/mm3 (1.8-7.7) 12/28/17 07:05 PT 13.3 Sec. (12.2-14.9) 12/27/17 14:40 INR 0.96 (0.87-1.13) 12/27/17 14:40 APTT 33.2 Sec. (24.2-36.6) 12/27/17 14:40 Sodium 141 mmol/L (137-145) 01/07/18 06:49 Potassium 4.3 mmol/L (3.6-5.0) 01/07/18 06:49 Chloride 101.0 mmol/L (98-107) 01/07/18 06:49 Carbon Dioxide 30 mmol/L (22-30) 01/07/18 06:49 Anion Gap 14 mmol/L 01/07/18 06:49 BUN 22 mg/dL (9-20) H 01/07/18 06:49 Creatinine 1.0 mg/dL (0.8-1.5) 01/07/18 06:49 Estimated GFR > 60 ml/min 01/07/18 06:49 BUN/Creatinine Ratio 22 % 01/07/18 06:49 Glucose 83 mg/dL (75-100) 01/07/18 06:49 POC Glucose 87 (70-105) 12/29/17 11:36 Hemoglobin A1c 5.6 % (4-6) 12/27/17 21:29 Calcium 8.6 mg/dL (8.4-10.2) 01/07/18 06:49 Total Bilirubin 0.30 mg/dL (0.1-1.2) 12/28/17 07:05 AST 35 units/L (5-40) 12/28/17 07:05 ALT 29 units/L (7-56) 12/28/17 07:05 Alkaline Phosphatase 108 units/L (35-129) 12/28/17 07:05 Troponin T < 0.010 ng/mL (0.00-0.029) 12/27/17 14:40 Total Protein 5.9 g/dL (6.3-8.2) L 12/28/17 07:05 Albumin 3.4 g/dL (3.9-5) L 12/28/17 07:05 Albumin/Globulin Ratio 1.4 % 12/28/17 07:05 Triglycerides 104 mg/dL (2-149) 12/28/17 07:05 Cholesterol 157 mg/dL (50-199) 12/28/17 07:05 LDL Cholesterol Direct 110 mg/dL (50-130) 12/28/17 07:05 HDL Cholesterol 38 mg/dL (40-59) L 12/28/17 07:05 Cholesterol/HDL Ratio 4.13 % 12/28/17 07:05 TSH 0.961 mlU/mL (0.270-4.200) 12/27/17 13:36 Urine Color Yellow (Yellow) 12/27/17 15:18 Urine Turbidity Clear (Clear) 12/27/17 15:18 Urine pH 6.0 (5.0-7.0) 12/27/17 15:18 Ur Specific [place] 1.008 (1.003-1.030) 12/27/17 15:18 Urine Protein <15 mg/dl mg/dL (Negative) 12/27/17 15:18 Urine Glucose (UA) Neg mg/dL (Negative) 12/27/17 15:18 Urine Ketones Neg mg/dL (Negative) 12/27/17 15:18 Urine Blood Neg (Negative) 12/27/17 15:18 Urine Nitrite Neg (Negative) 12/27/17 15:18 Urine Bilirubin Neg (Negative) 12/27/17 15:18 Urine Urobilinogen < 2.0 mg/dL (<2.0) 12/27/17 15:18 Ur Leukocyte Esterase Neg (Negative) 12/27/17 15:18 Urine WBC (Auto) 2.0 /HPF (0.0-6.0) 12/27/17 15:18 Urine RBC (Auto) < 1.0 /HPF (0.0-6.0) 12/27/17 15:18 Salicylates < 0.3 mg/dL (2.8-20.0) L 12/27/17 13:36 Urine Opiates Screen Presumptive negative 12/27/17 15:18 Urine Methadone Screen Presumptive negative 12/27/17 15:18 Acetaminophen < 5.0 ug/mL (10.0-30.0) L 12/27/17 13:36 Ur Barbiturates Screen Presumptive negative 12/27/17 15:18 Ur Phencyclidine Scrn Presumptive negative 07/11/18 15:18 Ur Amphetamines Screen Presumptive negative 12/27/17 15:18 U Benzodiazepines Scrn Presumptive negative 12/27/17 15:18 Urine Cocaine Screen Presumptive negative 12/27/17 15:18 U Marijuana (THC) Screen Presumptive negative 12/27/17 15:18 Drugs of Abuse Note Disclamer 12/27/17 15:18 Plasma/Serum Alcohol < 0.01 % (0-0.07) 12/27/17 13:36
--- NOTE | 2018-01-08 10:42 | Progress Note ---
Subjective - Reason for Consult Consult date: 01/08/18 Reason for consult: Psychiatry Follow-up - Chief Complaint Chief complaint: "My life is awful" Patient is a 47 year old WM seen for psychiatric follow up on the telemetry floor. He reports a diagnosis of bipolar disorder, cocaine use disorder, and opioid use disorder, in remission. Today the patient is calm, but still withdrawn during the assessment. He stated that he want the SI's to "go away." He rate his depression 7/10, with 10 being the worse. He continues to endorse SI 's with a plan to hang himself. He denies HI's and AVH's. He denies any side effects of his medications. Mental Status Exam - Vital signs Last Vital Signs Temp 98.1 F 01/08/18 06:54 Pulse 54 L 01/08/18 06:54 Resp 20 01/08/18 06:54 BP 103/61 01/08/18 06:54 Pulse Ox 96 01/08/18 06:54 - Exam Narrative exam: MSE: Appearance: calm, cooperative Behavior: regular eye contact Speech: regular rate and tone Mood: "depressed" sad, withdrawn Affect: flat Thought Process: circumstantial Thought Content: denies HI's and AVH's Motor Activity: sitting up in bed Cognition: A/O x 3 Insight: variable Judgment: variable Assessment and Plan Impression: Unspecified Mood DO. R/O PTSD. Hx of Substance Use DO and Opioid Use DO. Today the patient is calm, but withdrawn during the assessment. The patient endorses SI's. DDx: MDD, R/O Bipolar DO Recommendations/Plan: Continue 1013 with pending placement to [facility]. Continue Seroquel 500 mg PO HS for mood/psychosis, Vistaril 25 mg PO Q8hrs prn for acute anxiety, and Paxil to 30 mg PO daily for depression. Discussed possible metabolic side effects of Seroquel with patient. Discussed possible suicidality/medication induced akin with patient reference Paxil. Discussed generalized coping skills with patient.
[2018-01-08] MEDS: SODIUM CHLORIDE FLUSH SYRINGE 10 ML IV SCH ×3 (10:54→21:59)
[2018-01-08] MEDS: HEPARIN SUB-Q SCH ×2 (10:55→21:55)
[2018-01-08] MEDS: PAXIL PO SCH (10:56)
[2018-01-08] MEDS: BABY ASPIRIN PO SCH (10:56)
[2018-01-08] MEDS: PEPCID PO SCH ×2 (10:57→21:55)
[2018-01-08] MEDS: NORCO 5/325 PO PRN (11:35)
--- NOTE | 2018-01-08 12:25 | XRay Report ---
LEFT HIP, 2 views: History: Left hip pain. The bony architecture is intact without evidence of fracture or dislocation. No significant soft tissue abnormality is seen. IMPRESSION: Normal left hip.
[2018-01-08] MEDS: PHENERGAN PO PRN (13:41)
[2018-01-08] MEDS: HABITROL TD SCH (21:54)
[2018-01-08] MEDS: PERCOCET 5/325 PO PRN (21:58)
[2018-01-09] MEDS: HEPARIN SUB-Q SCH ×2 (09:49→21:05)
[2018-01-09] MEDS: ATARAX PO PRN ×2 (09:50→15:08)
[2018-01-09] MEDS: NORCO 5/325 PO PRN ×2 (09:50→21:05)
[2018-01-09] MEDS: BABY ASPIRIN PO SCH (09:50)
[2018-01-09] MEDS: PEPCID PO SCH ×2 (09:51→21:04)
[2018-01-09] MEDS: PAXIL PO SCH (09:51)
--- NOTE | 2018-01-09 10:31 | Progress Note ---
Subjective - Reason for Consult Consult date: 01/09/18 Reason for consult: Psychiatry Follow-up - Chief Complaint Chief complaint: "No reason to live" Patient is a 47 year old WM seen for psychiatric follow up on the telemetry floor. He reports a diagnosis of bipolar disorder, cocaine use disorder, and opioid use disorder, in remission. Today the patient is calm, but still withdrawn during the assessment. He stated not having a reason to live. He stated being away from his family to long. He stated that his hope is gone at this time. He denies HI's and AVH's. He continue to endorse SI's. He denies any side effects of his medications. Mental Status Exam - Vital signs Last Vital Signs Temp 98.4 F 01/08/18 21:54 Pulse 57 L 01/08/18 21:54 Resp 20 01/08/18 21:54 BP 120/75 01/08/18 21:54 Pulse Ox 96 01/08/18 21:54 - Exam Narrative exam: MSE: Appearance: calm, cooperative Behavior: regular eye contact Speech: regular rate and tone Mood: "depressed" sad, withdrawn Affect: flat Thought Process: circumstantial Thought Content: denies HI's and AVH's Motor Activity: sitting up in bed Cognition: A/O x 3 Insight: variable Judgment: variable Assessment and Plan Impression: Unspecified Mood DO. R/O PTSD. Hx of Substance Use DO and Opioid Use DO. Today the patient is calm, but withdrawn during the assessment. The patient endorses SI's. DDx: MDD, R/O Bipolar DO Recommendations/Plan: Continue 1013 with placement to inpatient psy services. Continue Seroquel 500 mg PO HS for mood/psychosis, Vistaril 25 mg PO Q8hrs prn for acute anxiety, and Paxil 30 mg PO daily for depression. Discussed possible metabolic side effects of Seroquel with patient. Discussed possible suicidality/ medication induced akin with patient reference Paxil. Discussed generalized coping skills with patient.
--- NOTE | 2018-01-09 11:52 | Progress Note ---
Assessment and Plan Assessment and plan: Mr. Gilliland is a 47 yo man with a history of MDD, tobacco dependency, ETOH abuse and cocaine abuse who presented AMS TIA, most likely, resolved - admitted with stroke protocol, MRI brain showed chronic changes only - cont aspirin, statin, consulted neuro - no abnormality on EEG Depression with bipolar disorder - mental health following SI, - psych following - on 1012 Nausea: -request oral antiemetics in which phenergan did help -add protonix -ordered am labs h/o drug abuse/dependence - supportive care, UDs negative Left hip pains, acute on chronic OA get xray DVt Px, lovenox On 01/07/18 our freelance copywriter called me because [facility] called her and requested a doctor to doctor for admission. So, I called [phone] and spoke with Nasreen who left a message for Dr. Branch to call me back. He called back later in the day. Basically, he was wondering why I contacted him. He will let me know on Monday regarding admission, pt may need to go to CSU, crisis stabilization unit per Dr. Branch. Disposition: patient medically cleared for inpt psych placement History Interval history: Patient was seen and examined. Follow-up on current diagnosis of SI. Overnight uneventful. Patient denies any chest pain, shortness breath, or severe headaches. Imaging, nursing note, chart, labs and old chart reviewed. Discussed with patient. He c/o nausea but no vomiting or abd pains. Left hip pain Hospitalist Physical - Physical exam Narrative exam: GEN: WDWN, NAD, Awake, Alert, Orientated x 3 HEENT: NCAT, EOMI, PERRL, OP Clear NECK: supple, no adenopathy, no thyromegaly, no JVD CVS/HEART: RRR, normal S1S2, pulses present bilaterally CHEST/LUNGS: CTA B, Symmetrical chest expansion, good air entry bilaterally GI/Abdomen: soft, NTND, good bowel sounds, no guarding or rebound /Bladder: no suprapubic tenderness, no CVA or paraspinal tenderness EXT/Skin: no c/c/e, no obvious rash MSK: FROM x 4 Neuro: CN 2-12 grossly intact, no new focal deficits Psych: calm - Constitutional Vitals: Temp Pulse Resp BP Pulse Ox 98.4 F 57 L 20 101/69 96 01/08/18 21:54 01/08/18 21:54 01/09/18 11:37 01/09/18 11:37 01/08/18 21:54 General appearance: Present: no acute distress, well-nourished Results - Labs CBC & Chem 7: 01/07/18 06:49 07 06:49 Labs: Laboratory Last Values WBC 7.4 K/mm3 (4.5-11.0) 01/07/18 06:49 RBC 4.61 M/mm3 (3.65-5.03) 01/07/18 06:49 Hgb 13.2 gm/dl (11.8-15.2) 01/07/18 06:49 Hct 38.9 % (35.5-45.6) 01/07/18 06:49 MCV 84 fl (84-94) 01/07/18 06:49 MCH 29 pg (28-32) 01/07/18 06:49 MCHC 34 % (32-34) 01/07/18 06:49 RDW 14.0 % (13.2-15.2) 01/07/18 06:49 Plt Count 302 K/mm3 (140-440) 01/07/18 06:49 Lymph % (Auto) 34.8 % (13.4-35.0) 12/28/17 07:05 [place] % (Auto) 10.0 % (0.0-7.3) H 12/28/17 07:05 Eos % (Auto) 9.9 % (0.0-4.3) H 12/28/17 07:05 Baso % (Auto) 0.6 % (0.0-1.8) 12/28/17 07:05 Lymph # 1.8 K/mm3 (1.2-5.4) 12/28/17 07:05 [place] # 0.5 K/mm3 (0.0-0.8) 12/28/17 07:05 Eos # 0.5 K/mm3 (0.0-0.4) H 12/28/17 07:05 Baso # 0.0 K/mm3 (0.0-0.1) 12/28/17 07:05 Seg Neutrophils % 44.7 % (40.0-70.0) 12/28/17 07:05 Seg Neutrophils # 2.3 K/mm3 (1.8-7.7) 12/28/17 07:05 PT 13.3 Sec. (12.2-14.9) 12/27/17 14:40 INR 0.96 (0.87-1.13) 12/27/17 14:40 APTT 33.2 Sec. (24.2-36.6) 12/27/17 14:40 Sodium 141 mmol/L (137-145) 01/07/18 06:49 Potassium 4.3 mmol/L (3.6-5.0) 01/07/18 06:49 Chloride 101.0 mmol/L (98-107) 01/07/18 06:49 Carbon Dioxide 30 mmol/L (22-30) 01/07/18 06:49 Anion Gap 14 mmol/L 01/07/18 06:49 BUN 22 mg/dL (9-20) H 01/07/18 06:49 Creatinine 1.0 mg/dL (0.8-1.5) 01/07/18 06:49 Estimated GFR > 60 ml/min 01/07/18 06:49 BUN/Creatinine Ratio 22 % 01/07/18 06:49 Glucose 83 mg/dL (75-100) 01/07/18 06:49 POC Glucose 87 (70-105) 12/29/17 11:36 Hemoglobin A1c 5.6 % (4-6) 12/27/17 21:29 Calcium 8.6 mg/dL (8.4-10.2) 01/07/18 06:49 Total Bilirubin 0.30 mg/dL (0.1-1.2) 12/28/17 07:05 AST 35 units/L (5-40) 12/28/17 07:05 ALT 29 units/L (7-56) 12/28/17 07:05 Alkaline Phosphatase 108 units/L (35-129) 12/28/17 07:05 Troponin T < 0.010 ng/mL (0.00-0.029) 12/27/17 14:40 Total Protein 5.9 g/dL (6.3-8.2) L 12/28/17 07:05 Albumin 3.4 g/dL (3.9-5) L 12/28/17 07:05 Albumin/Globulin Ratio 1.4 % 12/28/17 07:05 Triglycerides 104 mg/dL (2-149) 12/28/17 07:05 Cholesterol 157 mg/dL (50-199) 12/28/17 07:05 LDL Cholesterol Direct 110 mg/dL (50-130) 12/28/17 07:05 HDL Cholesterol 38 mg/dL (40-59) L 12/28/17 07:05 Cholesterol/HDL Ratio 4.13 % 12/28/17 07:05 TSH 0.961 mlU/mL (0.270-4.200) 12/27/17 13:36 Urine Color Yellow (Yellow) 12/27/17 15:18 Urine Turbidity Clear (Clear) 12/27/17 15:18 Urine pH 6.0 (5.0-7.0) 12/27/17 15:18 Ur Specific [place] 1.008 (1.003-1.030) 12/27/17 15:18 Urine Protein <15 mg/dl mg/dL (Negative) 12/27/17 15:18 Urine Glucose (UA) Neg mg/dL (Negative) 12/27/17 15:18 Urine Ketones Neg mg/dL (Negative) 12/27/17 15:18 Urine Blood Neg (Negative) 12/27/17 15:18 Urine Nitrite Neg (Negative) 12/27/17 15:18 Urine Bilirubin Neg (Negative) 12/27/17 15:18 Urine Urobilinogen < 2.0 mg/dL (<2.0) 12/27/17 15:18 Ur Leukocyte Esterase Neg (Negative) 12/27/17 15:18 Urine WBC (Auto) 2.0 /HPF (0.0-6.0) 12/27/17 15:18 Urine RBC (Auto) < 1.0 /HPF (0.0-6.0) 12/27/17 15:18 Salicylates < 0.3 mg/dL (2.8-20.0) L 12/27/17 13:36 Urine Opiates Screen Presumptive negative 12/27/17 15:18 Urine Methadone Screen Presumptive negative 12/27/17 15:18 Acetaminophen < 5.0 ug/mL (10.0-30.0) L 12/27/17 13:36 Ur Barbiturates Screen Presumptive negative 12/27/17 15:18 Ur Phencyclidine Scrn Presumptive negative 12/27/17 15:18 Ur Amphetamines Screen Presumptive negative 12/27/17 15:18 U Benzodiazepines Scrn Presumptive negative 12/27/17 15:18 Urine Cocaine Screen Presumptive negative 12/27/17 15:18 U Marijuana (THC) Screen Presumptive negative 12/27/17 15:18 Drugs of Abuse Note Disclamer 12/27/17 15:18 Plasma/Serum Alcohol < 0.01 % (0-0.07) 12/27/17 13:36
[2018-01-09] MEDS: SODIUM CHLORIDE FLUSH SYRINGE 10 ML IV SCH ×2 (14:38→21:11)
[2018-01-09] MEDS: PERCOCET 5/325 PO PRN (15:07)
[2018-01-09] MEDS: HABITROL TD SCH (21:14)
[2018-01-10] MEDS: NORCO 5/325 PO PRN ×2 (08:57→16:50)
[2018-01-10] MEDS: PAXIL PO SCH (09:16)
[2018-01-10] MEDS: BABY ASPIRIN PO SCH (09:16)
[2018-01-10] MEDS: HEPARIN SUB-Q SCH ×2 (09:16→21:37)
[2018-01-10] MEDS: PEPCID PO SCH ×2 (09:16→21:37)
[2018-01-10] MEDS: SODIUM CHLORIDE FLUSH SYRINGE 10 ML IV SCH (09:20)
--- NOTE | 2018-01-10 11:55 | Progress Note ---
Assessment and Plan Assessment and plan: Mr. Gilliland is a 47 yo man with a history of MDD, tobacco dependency, ETOH abuse and cocaine abuse who presented with AMS TIA, most likely, resolved - admitted with stroke protocol, MRI brain showed chronic changes only - cont aspirin, statin, consulted neuro - no abnormality on EEG Depression with bipolar disorder - mental health following SI, - psych following - on 1012 Nausea: -request oral antiemetics in which phenergan did help -add protonix -ordered am labs h/o drug abuse/dependence - supportive care, UDs negative Left hip pains, acute on chronic OA - tylenol for pain control DVt Px, lovenox On 01/07/18 our stamping mill tender called me because [facility] called her and requested a doctor to doctor call for admission. So, I called [phone] and spoke with Nasreen who left a message for Dr. Branch to call me back. He called back later in the day. Basically, he was wondering why I contacted him. He will let me know on Monday regarding admission, pt may need to go to CSU, crisis stabilization unit per Dr. Branch. Disposition: patient medically cleared for inpt psych placement History Interval history: Patient was seen and examined. Follow-up on current diagnosis of SI. Overnight uneventful. Patient denies any chest pain, shortness breath, or severe headaches. Imaging, nursing note, chart, labs and old chart reviewed. Discussed with patient. He c/o nausea but no vomiting or abd pains. Left hip pain Hospitalist Physical - Physical exam Narrative exam: GEN: WDWN, NAD, Awake, Alert, Orientated x 3 HEENT: NCAT, EOMI, PERRL, OP Clear NECK: supple, no adenopathy, no thyromegaly, no JVD CVS/HEART: RRR, normal S1S2, pulses present bilaterally CHEST/LUNGS: CTA B, Symmetrical chest expansion, good air entry bilaterally GI/Abdomen: soft, NTND, good bowel sounds, no guarding or rebound /Bladder: no suprapubic tenderness, no CVA or paraspinal tenderness EXT/Skin: no c/c/e, no obvious rash MSK: FROM x 4 Neuro: CN 2-12 grossly intact, no new focal deficits Psych: calm but depressed mood, no eye contact - Constitutional Vitals: Temp Pulse Resp BP Pulse Ox 98.5 F 60 18 102/61 95 01/10/18 11:43 01/10/18 11:43 01/10/18 11:43 01/10/18 11:43 01/10/18 11:43 General appearance: Present: no acute distress, well-nourished Results - Labs CBC & Chem 7: 01/07/18 06:49 01/07/18 06:49 Labs: Laboratory Last Values WBC 7.4 K/mm3 (4.5-11.0) 01/07/18 06:49 RBC 4.61 M/mm3 (3.65-5.03) 01/07/18 06:49 Hgb 13.2 gm/dl (11.8-15.2) 01/07/18 06:49 Hct 38.9 % (35.5-45.6) 01/07/18 06:49 MCV 84 fl (84-94) 01/07/18 06:49 MCH 29 pg (28-32) 01/07/18 06:49 MCHC 34 % (32-34) 01/07/18 06:49 RDW 14.0 % (13.2-15.2) 01/07/18 06:49 Plt Count 302 K/mm3 (140-440) 01/07/18 06:49 Lymph % (Auto) 34.8 % (13.4-35.0) 12/28/17 07:05 [place] % (Auto) 10.0 % (0.0-7.3) H 12/28/17 07:05 Eos % (Auto) 9.9 % (0.0-4.3) H 12/28/17 07:05 Baso % (Auto) 0.6 % (0.0-1.8) 12/28/17 07:05 Lymph # 1.8 K/mm3 (1.2-5.4) 12/28/17 07:05 [place] # 0.5 K/mm3 (0.0-0.8) 12/28/17 07:05 Eos # 0.5 K/mm3 (0.0-0.4) H 12/28/17 07:05 Baso # 0.0 K/mm3 (0.0-0.1) 12/28/17 07:05 Seg Neutrophils % 44.7 % (40.0-70.0) 12/28/17 07:05 Seg Neutrophils # 2.3 K/mm3 (1.8-7.7) 12/28/17 07:05 PT 13.3 Sec. (12.2-14.9) 12/27/17 14:40 INR 0.96 (0.87-1.13) 12/27/17 14:40 APTT 33.2 Sec. (24.2-36.6) 12/27/17 14:40 Sodium 141 mmol/L (137-145) 01/07/18 06:49 Potassium 4.3 mmol/L (3.6-5.0) 01/07/18 06:49 Chloride 101.0 mmol/L (98-107) 01/07/18 06:49 Carbon Dioxide 30 mmol/L (22-30) 01/07/18 06:49 Anion Gap 14 mmol/L 01/07/18 06:49 BUN 22 mg/dL (9-20) H 01/07/18 06:49 Creatinine 1.0 mg/dL (0.8-1.5) 01/07/18 06:49 Estimated GFR > 60 ml/min 01/07/18 06:49 BUN/Creatinine Ratio 22 % 01/07/18 06:49 Glucose 83 mg/dL (75-100) 01/07/18 06:49 POC Glucose 87 (70-105) 12/29/17 11:36 Hemoglobin A1c 5.6 % (4-6) 12/27/17 21:29 Calcium 8.6 mg/dL (8.4-10.2) 01/07/18 06:49 Total Bilirubin 0.30 mg/dL (0.1-1.2) 12/28/17 07:05 AST 35 units/L (5-40) 12/28/17 07:05 ALT 29 units/L (7-56) 12/28/17 07:05 Alkaline Phosphatase 108 units/L (35-129) 12/28/17 07:05 Troponin T < 0.010 ng/mL (0.00-0.029) 12/27/17 14:40 Total Protein 5.9 g/dL (6.3-8.2) L 12/28/17 07:05 Albumin 3.4 g/dL (3.9-5) L 12/28/17 07:05 Albumin/Globulin Ratio 1.4 % 12/28/17 07:05 Triglycerides 104 mg/dL (2-149) 12/28/17 07:05 Cholesterol 157 mg/dL (50-199) 12/28/17 07:05 LDL Cholesterol Direct 110 mg/dL (50-130) 12/28/17 07:05 HDL Cholesterol 38 mg/dL (40-59) L 12/28/17 07:05 Cholesterol/HDL Ratio 4.13 % 12/28/17 07:05 TSH 0.961 mlU/mL (0.270-4.200) 12/27/17 13:36 Urine Color Yellow (Yellow) 12/27/17 15:18 Urine Turbidity Clear (Clear) 12/27/17 15:18 Urine pH 6.0 (5.0-7.0) 12/27/17 15:18 Ur Specific [place] 1.008 (1.003-1.030) 12/27/17 15:18 Urine Protein <15 mg/dl mg/dL (Negative) 12/27/17 15:18 Urine Glucose (UA) Neg mg/dL (Negative) 12/27/17 15:18 Urine Ketones Neg mg/dL (Negative) 12/27/17 15:18 Urine Blood Neg (Negative) 12/27/17 15:18 Urine Nitrite Neg (Negative) 12/27/17 15:18 Urine Bilirubin Neg (Negative) 12/27/17 15:18 Urine Urobilinogen < 2.0 mg/dL (<2.0) 12/27/17 15:18 Ur Leukocyte Esterase Neg (Negative) 12/27/17 15:18 Urine WBC (Auto) 2.0 /HPF (0.0-6.0) 12/27/17 15:18 Urine RBC (Auto) < 1.0 /HPF (0.0-6.0) 12/27/17 15:18 Salicylates < 0.3 mg/dL (2.8-20.0) L 12/27/17 13:36 Urine Opiates Screen Presumptive negative 12/27/17 15:18 Urine Methadone Screen Presumptive negative 12/27/17 15:18 Acetaminophen < 5.0 ug/mL (10.0-30.0) L 12/27/17 13:36 Ur Barbiturates Screen Presumptive negative 12/27/17 15:18 Ur Phencyclidine Scrn Presumptive negative 12/27/17 15:18 Ur Amphetamines Screen Presumptive negative 12/27/17 15:18 U Benzodiazepines Scrn Presumptive negative 12/27/17 15:18 Urine Cocaine Screen Presumptive negative 12/27/17 15:18 U Marijuana (THC) Screen Presumptive negative 12/27/17 15:18 Drugs of Abuse Note Disclamer 12/27/17 15:18 Plasma/Serum Alcohol < 0.01 % (0-0.07) 12/27/17 13:36
[2018-01-10] MEDS: PHENERGAN PO PRN (18:33)
--- NOTE | 2018-01-10 20:51 | Progress Note ---
Subjective - Reason for Consult Consult date: 01/10/18 Reason for consult: Psychiatric Follow-up Evaluation - Chief Complaint Chief complaint: "I'm still down and out" Patient is a 47 year old WM seen for psychiatric follow up on the telemetry floor. He reports a diagnosis of bipolar disorder, cocaine use disorder, and opioid use disorder, in remission. Today the patient is calm, but still withdrawn during the assessment. He stated not having a reason to live. He stated being away from his family to long. He stated that his hope is gone at this time. He denies HI's and AVH's. He continue to endorse SI's. He denies any side effects of his medications. Mental Status Exam - Vital signs Last Vital Signs Temp 98.4 F 01/10/18 16:37 Pulse 60 01/10/18 16:37 Resp 20 01/10/18 16:50 BP 124/76 01/10/18 16:37 Pulse Ox 97 01/10/18 16:37 Assessment and Plan Impression: Unspecified Mood DO. R/O PTSD. Hx of Substance Use DO and Opioid Use DO. Today the patient is calm, but withdrawn during the assessment. The patient endorses SI's. DDx: MDD, R/O Bipolar DO Recommendations/Plan: 1. Continue 1013 with placement to inpatient psy services. 2. Continue Seroquel 500 mg PO HS for mood/psychosis, Vistaril 25 mg PO Q8hrs prn for acute anxiety, and Paxil 30 mg PO daily for depression. Discussed possible metabolic side effects of Seroquel with patient. Discussed possible suicidality/medication induced akin with patient reference Paxil. Discussed generalized coping skills with patient. 3. Will continue to monitor mood, psychosis, sleep, appetite, compliance, and side effects.
[2018-01-10] MEDS: HABITROL TD SCH (21:36)
[2018-01-10] MEDS: PERCOCET 5/325 PO PRN (21:38)
[2018-01-11 06:26] VITALS: BP 98/63
[2018-01-11] MEDS: SODIUM CHLORIDE FLUSH SYRINGE 10 ML IV SCH (09:23)
[2018-01-11] MEDS: PAXIL PO SCH (09:24)
[2018-01-11] MEDS: BABY ASPIRIN PO SCH (09:24)
[2018-01-11] MEDS: PEPCID PO SCH (09:24)
[2018-01-11] MEDS: HEPARIN SUB-Q SCH (09:24)
[2018-01-11] MEDS: PERCOCET 5/325 PO PRN (09:44)
--- NOTE | 2018-01-11 09:54 | Progress Note ---
Subjective - Reason for Consult Consult date: 01/11/18 Reason for consult: Psychiatry Follow-up - Chief Complaint Chief complaint: "I need to get better" 47 year old WM seen for psychiatric follow up on the telemetry floor. He reports a diagnosis of bipolar disorder, cocaine use disorder, and opioid use disorder, in remission. Today the patient is calm, but still withdrawn and sad during the assessment. He stated that he want to get better "mentally." He continue to endorse SI's with a plan to hang himself. He stated that he slept 5 hours last night. He denies HI's and AVH's. He denies any side effects of his medications. Mental Status Exam - Vital signs Last Vital Signs Temp 98.0 F 01/11/18 06:15 Pulse 57 L 01/11/18 06:15 Resp 12 01/11/18 06:15 BP 98/63 01/11/18 06:15 Pulse Ox 95 01/11/18 06:15 - Exam Narrative exam: MSE: Appearance: calm, cooperative Behavior: regular eye contact Speech: regular rate and tone Mood: "depressed" sad, withdrawn Affect: flat Thought Process: circumstantial Thought Content: denies HI's and AVH's Motor Activity: sitting up in bed Cognition: A/O x 3 Insight: variable Judgment: variable Assessment and Plan Impression: Unspecified Mood DO. R/O PTSD. Hx of Substance Use DO and Opioid Use DO. Today the patient is calm, but still withdrawn and sad during the assessment. The patient endorses SI's. DDx: MDD, R/O Bipolar DO Recommendations/Plan: Continue 1013 with placement to [facility] today. Continue Seroquel 500 mg PO HS for mood/psychosis, Vistaril 25 mg PO Q8hrs prn for acute anxiety, and Paxil 30 mg PO daily for depression. Discussed possible metabolic side effects of Seroquel with patient. Discussed possible suicidality/ medication induced akin with patient reference Paxil. Discussed generalized coping skills with patient.
--- NOTE | 2018-01-11 11:18 | Progress Note ---
Assessment and Plan Assessment and plan: Mr. Gilliland is a 47 yo man with a history of MDD, tobacco dependency, ETOH abuse and cocaine abuse who presented with AMS TIA, most likely, resolved - admitted with stroke protocol, MRI brain showed chronic changes only - cont aspirin, statin, consulted neuro - no abnormality on EEG Depression with bipolar disorder - mental health following SI, - psych following - on 1012 Nausea: -request oral antiemetics in which phenergan did help -add protonix -ordered am labs h/o drug abuse/dependence - supportive care, UDs negative Left hip pains, acute on chronic OA - tylenol for pain control DVt Px, lovenox On 01/07/18 our grocery stocker called me because [facility] called her and requested a doctor to doctor call for admission. So, I called [phone] and spoke with Nasreen who left a message for Dr. Branch to call me back. He called back later in the day. Basically, he was wondering why I contacted him. He will let me know on Monday regarding admission, pt may need to go to CSU, crisis stabilization unit per Dr. Branch. Disposition: patient medically cleared for inpt psych placement History Interval history: Patient was seen and examined. Follow-up on current diagnosis of SI. Overnight uneventful. Patient denies any chest pain, shortness breath, or severe headaches. Imaging, nursing note, chart, labs and old chart reviewed. Discussed with patient. He c/o nausea but no vomiting or abd pains. Left hip pain Hospitalist Physical - Physical exam Narrative exam: GEN: WDWN, NAD, Awake, Alert, Orientated x 3 HEENT: NCAT, EOMI, PERRL, OP Clear NECK: supple, no adenopathy, no thyromegaly, no JVD CVS/HEART: RRR, normal S1S2, pulses present bilaterally CHEST/LUNGS: CTA B, Symmetrical chest expansion, good air entry bilaterally GI/Abdomen: soft, NTND, good bowel sounds, no guarding or rebound /Bladder: no suprapubic tenderness, no CVA or paraspinal tenderness EXT/Skin: no c/c/e, no obvious rash MSK: FROM x 4 Neuro: CN 2-12 grossly intact, no new focal deficits Psych: calm but depressed mood, no eye contact - Constitutional Vitals: Temp Pulse Resp BP Pulse Ox 98.0 F 57 L 12 98/63 95 01/11/18 06:15 01/11/18 06:15 01/11/18 06:15 01/11/18 06:15 01/11/18 06:15 General appearance: Present: no acute distress, well-nourished Results - Labs CBC & Chem 7: 01/07/18 06:49 01/07/18 06:49 Labs: Laboratory Last Values WBC 7.4 K/mm3 (4.5-11.0) 01/07/18 06:49 RBC 4.61 M/mm3 (3.65-5.03) 01/07/18 06:49 Hgb 13.2 gm/dl (11.8-15.2) 01/07/18 06:49 Hct 38.9 % (35.5-45.6) 01/07/18 06:49 MCV 84 fl (84-94) 01/07/18 06:49 MCH 29 pg (28-32) 01/07/18 06:49 MCHC 34 % (32-34) 01/07/18 06:49 RDW 14.0 % (13.2-15.2) 01/07/18 06:49 Plt Count 302 K/mm3 (140-440) 01/07/18 06:49 Lymph % (Auto) 34.8 % (13.4-35.0) 12/28/17 07:05 [place] % (Auto) 10.0 % (0.0-7.3) H 12/28/17 07:05 Eos % (Auto) 9.9 % (0.0-4.3) H 12/28/17 07:05 Baso % (Auto) 0.6 % (0.0-1.8) 12/28/17 07:05 Lymph # 1.8 K/mm3 (1.2-5.4) 12/28/17 07:05 [place] # 0.5 K/mm3 (0.0-0.8) 12/28/17 07:05 Eos # 0.5 K/mm3 (0.0-0.4) H 12/28/17 07:05 Baso # 0.0 K/mm3 (0.0-0.1) 12/28/17 07:05 Seg Neutrophils % 44.7 % (40.0-70.0) 12/28/17 07:05 Seg Neutrophils # 2.3 K/mm3 (1.8-7.7) 12/28/17 07:05 PT 13.3 Sec. (12.2-14.9) 12/27/17 14:40 INR 0.96 (0.87-1.13) 12/27/17 14:40 APTT 33.2 Sec. (24.2-36.6) 12/27/17 14:40 Sodium 141 mmol/L (137-145) 01/07/18 06:49 Potassium 4.3 mmol/L (3.6-5.0) 01/07/18 06:49 Chloride 101.0 mmol/L (98-107) 01/07/18 06:49 Carbon Dioxide 30 mmol/L (22-30) 01/07/18 06:49 Anion Gap 14 mmol/L 01/07/18 06:49 BUN 22 mg/dL (9-20) H 01/07/18 06:49 Creatinine 1.0 mg/dL (0.8-1.5) 01/07/18 06:49 Estimated GFR > 60 ml/min 01/07/18 06:49 BUN/Creatinine Ratio 22 % 01/07/18 06:49 Glucose 83 mg/dL (75-100) 01/07/18 06:49 POC Glucose 87 (70-105) 12/29/17 11:36 Hemoglobin A1c 5.6 % (4-6) 12/27/17 21:29 Calcium 8.6 mg/dL (8.4-10.2) 01/07/18 06:49 Total Bilirubin 0.30 mg/dL (0.1-1.2) 12/28/17 07:05 AST 35 units/L (5-40) 12/28/17 07:05 ALT 29 units/L (7-56) 12/28/17 07:05 Alkaline Phosphatase 108 units/L (35-129) 12/28/17 07:05 Troponin T < 0.010 ng/mL (0.00-0.029) 12/27/17 14:40 Total Protein 5.9 g/dL (6.3-8.2) L 12/28/17 07:05 Albumin 3.4 g/dL (3.9-5) L 12/28/17 07:05 Albumin/Globulin Ratio 1.4 % 12/28/17 07:05 Triglycerides 104 mg/dL (2-149) 12/28/17 07:05 Cholesterol 157 mg/dL (50-199) 12/28/17 07:05 LDL Cholesterol Direct 110 mg/dL (50-130) 12/28/17 07:05 HDL Cholesterol 38 mg/dL (40-59) L 12/28/17 07:05 Cholesterol/HDL Ratio 4.13 % 12/28/17 07:05 TSH 0.961 mlU/mL (0.270-4.200) 12/27/17 13:36 Urine Color Yellow (Yellow) 12/27/17 15:18 Urine Turbidity Clear (Clear) 12/27/17 15:18 Urine pH 6.0 (5.0-7.0) 12/27/17 15:18 Ur Specific [place] 1.008 (1.003-1.030) 12/27/17 15:18 Urine Protein <15 mg/dl mg/dL (Negative) 12/27/17 15:18 Urine Glucose (UA) Neg mg/dL (Negative) 12/27/17 15:18 Urine Ketones Neg mg/dL (Negative) 12/27/17 15:18 Urine Blood Neg (Negative) 12/27/17 15:18 Urine Nitrite Neg (Negative) 12/27/17 15:18 Urine Bilirubin Neg (Negative) 12/27/17 15:18 Urine Urobilinogen < 2.0 mg/dL (<2.0) 12/27/17 15:18 Ur Leukocyte Esterase Neg (Negative) 12/27/17 15:18 Urine WBC (Auto) 2.0 /HPF (0.0-6.0) 12/27/17 15:18 Urine RBC (Auto) < 1.0 /HPF (0.0-6.0) 12/27/17 15:18 Salicylates < 0.3 mg/dL (2.8-20.0) L 12/27/17 13:36 Urine Opiates Screen Presumptive negative 12/27/17 15:18 Urine Methadone Screen Presumptive negative 12/27/17 15:18 Acetaminophen < 5.0 ug/mL (10.0-30.0) L 12/27/17 13:36 Ur Barbiturates Screen Presumptive negative 12/27/17 15:18 Ur Phencyclidine Scrn Presumptive negative 12/27/17 15:18 Ur Amphetamines Screen Presumptive negative 12/27/17 15:18 U Benzodiazepines Scrn Presumptive negative 12/27/17 15:18 Urine Cocaine Screen Presumptive negative 12/27/17 15:18 U Marijuana (THC) Screen Presumptive negative 12/27/17 15:18 Drugs of Abuse Note Disclamer 12/27/17 15:18 Plasma/Serum Alcohol < 0.01 % (0-0.07) 12/27/17 13:36
[2018-01-11] MEDS: PHENERGAN PO PRN (13:00)
[2018-01-11] MEDS: VISTARIL PO PRN (16:41)
== END 2018-01-11 20:30 | DRG 69 ==
LOC: ED 12:59 → 4A 15:41 → 3A 01-02 12:00
PROVIDERS: ADMIT Internal Medicine; ATTEND Internal Medicine
DX: G45.9 Transient cerebral ischemic attack, unspecified (principal); F31.30 Bipolar disorder, current episode depressed, mild or moderate severity, unspecified; E44.1 Mild protein-calorie malnutrition; R45.851 Suicidal ideations; F41.9 Anxiety disorder, unspecified; F17.210 Nicotine dependence, cigarettes, uncomplicated; F10.20 Alcohol dependence, uncomplicated; Y90.0 Blood alcohol level of less than 20 mg/100 ml; F14.29 Cocaine dependence with unspecified cocaine-induced disorder; F11.21 Opioid dependence, in remission; F39 Unspecified mood [affective] disorder; M16.12 Unilateral primary osteoarthritis, left hip; Z68.25 Body mass index [BMI] 25.0-25.9, adult; Z82.3 Family history of stroke; Z82.49 Family history of ischemic heart disease and other diseases of the circulatory system; Z82.0 Family history of epilepsy and other diseases of the nervous system
CPT/HCPCS: 36415; 70450; 70496; 70498; 70544; 70551; 71045; 80048; 80053; 80061; 80307; 80320; 81001; 82962; 83036; 84443; 84484; 85025; 85027; 85610; 85730; 93005; 93010; 93306; 93880; 95819; A9270-GY; G0480; J1644; J2270; J2405; J7030; Q0169; Q0177; Q9967